=== PATIENT | female | born 1945 | race Hispanic/Latino ===

== ENCOUNTER 2019-05-04 11:07 | Inpatient (IN) | payer MEDICARE ==
[2019-05-04] MEDS ORDERED: MAGNESIUM SULFATE 2GM/50ML 2 GM/50 ML BAG IV ONE (11:21)
[2019-05-04] MEDS ORDERED: SOLU-Medrol IV ONE ×2 (11:21)
[2019-05-04] MEDS ORDERED: PROVENTIL IH ONE ×3 (11:21→15:25)
[2019-05-04] MEDS ORDERED: NACL 0.9% 500 ML 500 ML IV ONE (11:21)
[2019-05-04] MEDS ORDERED: ATROVENT IH ONE ×2 (11:21→14:27)
--- NOTE | 2019-05-04 11:32 | Emergency Department Report ---
ED Shortness of Breath HPI - General Chief Complaint: Dyspnea/Respdistress Stated Complaint: COPD Time Seen by Provider: 05/04/19 11:17 Source: patient, RN notes reviewed Mode of arrival: Ambulatory Limitations: Physical Limitation - History of Present Illness Initial Comments: Primary care Dr.: Dr. Newman Past medical history: COPD, reportedly not on home oxygen, anxiety, high cholesterol, does not have a private endodontist. This is a pleasant 74-year-old female. The patient is not known to this provider previously. The patient presents to the ER with a complaint of painless cough, wheezing, shortness of breath. Symptoms present since last week. They're constant, they do not radiate anywhere, there is no relief with medications at home, the patient denies DVT, pulmonary embolism risk factors. The patient indicates no DVT or PE risk factors. The patient currently denies headache, neck pain, chest pain, she has abdominal cramping from coughing, she denies nausea or vomiting, she denies urinary symptoms, she denies leg pain, leg swelling, skin rashes, skin lesions. MD Complaint: shortness of breath, cough -: Gradual, days(s) Consistency: constant Improves With: rest Worsens With: exertion Known History Of: COPD - Related Data Home Oxygen Therapy: No Home Medications Medication Instructions Recorded Confirmed Last Taken traMADol [Ultram] 50 mg PO Q4HR PRN 09/04/16 09/04/16 09/04/16 Previous Rx's Medication Instructions Recorded Last Taken Type Cyclobenzaprine [Flexeril] 10 mg PO TID PRN #14 tablet 09/04/16 Unknown Rx HYDROcodone/APAP 5-325 [Bannister 1 - 2 each PO Q6HR PRN #14 tablet 09/04/16 Unknown Rx 5/325] Ibuprofen [Motrin 800 MG tab] 800 mg PO Q8HR PRN #20 tablet 09/04/16 Unknown Rx Allergies Allergy/AdvReac Type Severity Reaction Status Date / Time No Known Allergies Allergy Unverified 09/04/16 10:05 ED Review of Systems ROS: Stated complaint: COPD Other details as noted in HPI Constitutional: malaise. denies: fever Eyes: denies: eye discharge ENT: congestion. denies: epistaxis Respiratory: cough, shortness of breath, SOB with exertion, SOB at rest, wheezing Cardiovascular: denies: chest pain Gastrointestinal: denies: vomiting Genitourinary: denies: dysuria Musculoskeletal: denies: myalgia Skin: denies: lesions Neurological: weakness Psychiatric: anxiety Hematological/Lymphatic: denies: easy bleeding ED Past Medical Hx - Past Medical History Previous Medical History?: Yes Hx Psychiatric Treatment: Yes (anxiety) Hx COPD: Yes Additional medical history: high cholesterol - Surgical History Past Surgical History?: Yes Additional Surgical History: bilateral knee surgery. tubal . Rectovaginal fistula repair - Social History Smoking Status: Current Every Day Smoker (20-30 cigarettes daily) Substance Use Type: None - Medications Home Medications: Home Medications Medication Instructions Recorded Confirmed Last Taken Type Cyclobenzaprine [Flexeril] 10 mg PO TID PRN #14 tablet 09/04/16 Unknown Rx HYDROcodone/APAP 5-325 [Bannister 1 - 2 each PO Q6HR PRN #14 tablet 09/04/16 Unknown Rx 5/325] Ibuprofen [Motrin 800 MG tab] 800 mg PO Q8HR PRN #20 tablet 09/04/16 Unknown Rx traMADol [Ultram] 50 mg PO Q4HR PRN 09/04/16 09/04/16 09/04/16 History ED Physical Exam - General Limitations: No Limitations General appearance: alert, anxious, in distress - Head Head exam: Present: atraumatic, normocephalic - Eye Eye exam: Present: normal appearance, EOMI. Absent: nystagmus - ENT ENT exam: Present: normal exam, normal orophraynx, mucous membranes moist, normal external ear exam - Neck Neck exam: Present: normal inspection, full ROM. Absent: tenderness, meningismus - Respiratory Respiratory exam: Present: respiratory distress, wheezes, rhonchi. Absent: decreased breath sounds - Cardiovascular Cardiovascular Exam: Present: normal rhythm, tachycardia, normal heart sounds. Absent: systolic murmur, diastolic murmur, rubs, gallop - GI/Abdominal GI/Abdominal exam: Present: soft. Absent: distended, tenderness, guarding, rebound, rigid, pulsatile mass - Extremities Exam Extremities exam: Present: normal inspection, full ROM, pedal edema (1+ edema lower extremities.), other (2+ pulses noted in the bilateral upper, lower extremities. Compartments soft. No long bony tenderness. The pelvis is stable.). Absent: calf tenderness - Back Exam Back exam: Present: normal inspection, full ROM. Absent: tenderness, CVA tenderness (L), paraspinal tenderness, vertebral tenderness - Neurological Exam Neurological exam: Present: alert, other (Extraocular movements intact. Tongue midline. No facial droop. Facial sensation intact to light touch in the V1, V2, V3 distribution bilaterally. 5 and 5 strength in 4 extremities.. Sensation is intact to light touch in 4 extremities.). Absent: motor sensory deficit - Psychiatric Psychiatric exam: Present: anxious - Skin Skin exam: Present: warm. Absent: rash ED Course Vital Signs 05/04/19 05/04/19 05/04/19 11:10 12:28 12:45 Temperature 97.8 F 97.9 F Pulse Rate 120 H 104 H 110 H Pulse Rate [ Anterior Bilateral Throughout] Respiratory 26 H 12 Rate Respiratory Rate [Anterior Bilateral Throughout] Blood Pressure 135/80 Blood Pressure 138/90 [Right] O2 Sat by Pulse 91 100 Oximetry 05/04/19 05/04/19 13:23 14:05 Temperature Pulse Rate 111 H Pulse Rate [ 108 H Anterior Bilateral Throughout] Respiratory 22 Rate Respiratory 19 Rate [Anterior Bilateral Throughout] Blood Pressure Blood Pressure 121/78 [Right] O2 Sat by Pulse 99 Oximetry - Reevaluation(s) Reevaluation #1: 05/04/19 11:30 Differential diagnosis, including but not limited to: COPD exacerbation, pneumonia, pneumothorax, dehydration, anxiety Assessment and plan: 74-year-old female with probable COPD exacerbation. She is afebrile, saturating at 92% on room air, tachycardia, tachypnea, likely secondary to underlying physiology of COPD, possible anxiety. We will treat her symptoms with albuterol, Atrovent, steroids, fluids, obtain basic lab studies, x-ray of the chest, EKG and reassess after her initial resuscitation Reevaluation #2: 05/04/19 12:45 Resting heart rate 105 bpm. Patient feels improved. Still wheezing, but work of breathing improved. Wheezing is clinically improved. Reevaluation #3: 05/04/19 14:28 Patient still having wheezing. during trial of ambulation, patient desaturated to mid 80s, became more tachycardic and tachypneic. Patient meets criteria for hospitalization. She is amenable to hospitalization. Hospital physician, Dr. Yusuf Byrnes accepts the patient to the medical service for COPD exacerbation. Troponin is sent prior to my evaluation, do not suspect acute coronary syndrome based off of the history and physical. ED Medical Decision Making - Lab Data Result diagrams: 05/04/19 12:04 05/04/19 12:04 Vital Signs 05/04/19 11:10 Temperature 97.8 F Pulse Rate 120 H Respiratory 26 H Rate Blood Pressure 138/90 [Right] O2 Sat by Pulse 91 Oximetry Vital Signs (72 hours) 05/04/19 05/04/19 05/04/19 11:10 12:28 12:45 Temperature 97.8 F 97.9 F Pulse Rate 120 H 104 H 110 H Respiratory 26 H 12 Rate Blood Pressure 135/80 Blood Pressure 138/90 [Right] O2 Sat by Pulse 91 100 Oximetry 05/04/19 13:23 Temperature Pulse Rate 111 H Respiratory 22 Rate Blood Pressure Blood Pressure 121/78 [Right] O2 Sat by Pulse 99 Oximetry Lab Results 05/04/19 05/04/19 05/04/19 Range/Units 12:04 12:04 12:04 WBC 7.9 (4.5-11.0) K/mm3 RBC 4.03 (3.65-5.03) M/mm3 Hgb 11.8 (10.1-14.3) gm/dl Hct 35.8 (30.3-42.9) % MCV 89 (79-97) fl MCH 29 (28-32) pg MCHC 33 (30-34) % RDW 14.7 (13.2-15.2) % Plt Count 271 (140-440) K/mm3 Eos % (Auto) Bowling Floor Manager PT 13.2 (12.2-14.9) Sec. INR 1.03 (0.87-1.13) APTT 20.0 L (24.2-36.6) Sec. Sodium 140 (137-145) mmol/L Potassium 3.9 (3.6-5.0) mmol/L Chloride 104.7 (98-107) mmol/L Carbon Dioxide 25 (22-30) mmol/L Anion Gap 14 mmol/L BUN 12 (7-17) mg/dL Creatinine 0.7 (0.7-1.2) mg/dL Estimated GFR > 60 ml/min BUN/Creatinine Ratio 17 % Glucose 102 H (65-100) mg/dL Calcium 8.9 (8.4-10.2) mg/dL Magnesium 2.60 H (1.7-2.3) mg/dL Total Bilirubin 0.20 (0.1-1.2) mg/dL AST 19 (5-40) units/L ALT 10 (7-56) units/L Alkaline Phosphatase 116 (35-129) units/L Total Creatine Kinase 303 H (30-135) units/L Troponin T < 0.010 (0.00-0.029) ng/mL Total Protein 6.8 (6.3-8.2) g/dL Albumin 3.9 (3.9-5) g/dL Albumin/Globulin Ratio 1.3 % - EKG Data -: EKG Interpreted by [place] EKG shows normal: sinus rhythm Rate: normal - EKG Data When compared to previous EKG there are: previous EKG unavailable 05/04/19 11:33 This is a sinus tachycardia, normal axis, QTC prolonged, motion artifact, [place] interval within normal limits, this EKG is not consistent ST elevation myocard ial infarction, this is an abnormal EKG, there is no prior for comparison. - Radiology Data Radiology results: report reviewed, image reviewed X-ray of the chest is negative for acute disease. Critical care attestation.: If time is entered above; I have spent that time in minutes in the direct care of this critically ill patient, excluding procedure time. ED Disposition Clinical Impression: COPD with exacerbation Disposition: OP ADMIT IP TO THIS HOSP Is pt being admited?: Yes Condition: Fair Instructions: Chronic Obstructive Pulmonary Disease (ED) Referrals: LUCIANA CURTIS MD [Primary Care Provider] - 3-5 Days
--- NOTE | 2019-05-04 12:09 | XRay Report ---
CHEST 1 VIEW 05/04/2019 11:28 AM INDICATION / CLINICAL INFORMATION: Dyspnea. COMPARISON: None available. FINDINGS: SUPPORT DEVICES: None. HEART / MEDIASTINUM: Normal heart size. Atherosclerosis in the thoracic aorta. LUNGS / PLEURA: Scattered calcified granulomata present. No focal consolidation or significant pleura l effusion. No pneumothorax. ADDITIONAL FINDINGS: No significant additional findings. IMPRESSION: 1. No acute findings. Signer Name: Jose Flores MD Signed: 05/04/2019 12:05 PM Workstation Name: [id number]
[2019-05-04 12:37] LABS: Hematocrit 35.8 % (30.3-42.9); Hemoglobin 11.8 gm/dl (10.1-14.3); Mean Corpuscular HGB Conc 33 % (30-34); Mean Corpuscular Volume 89 fl (79-97); Platelet Count 271 K/mm3 (140-440); Red Blood Count 4.03 M/mm3 (3.65-5.03); Red Cell Distribution Width 14.7 % (13.2-15.2)
[2019-05-04 12:42] LABS: Alanine Aminotransferase 10 units/L (7-56); Albumin 3.9 g/dL (3.9-5); BUN/Creatinine Ratio 17; Blood Urea Nitrogen 12 mg/dL (7-17); Calcium 8.9 mg/dL (8.4-10.2); Hemolysis Index 4
[2019-05-04 12:44] LABS: INR 1.03 (0.87-1.13)
[2019-05-04 13:56] LABS: Basophils % (Manual) 0 % (0.0-1.8); Platelet Estimate Consistent w Auto; RBC Morphology Normal; Total Cells Counted 100
[2019-05-04] MEDS ORDERED: VIBRAMYCIN PO ONE (14:27)
[2019-05-04] MEDS ORDERED: VIBRAMYCIN ONE (15:39)
[2019-05-04] MEDS ORDERED: PROAIR IH PRN (20:03)
--- NOTE | 2019-05-04 20:03 | History and Physical Report ---
History of Present Illness Date of examination: 05/04/19 Date of admission: 05/04/19 14:46 Chief complaint: Cough and SOB for one week History of present illness: 74-year-old female with history of severe COPD and Excessive nicotine dependence presents to the ER with complaint of cough, wheezing and shortness of breath for one week.Cough productive of mucoid sputum.No fever or chills.No recent travel.Continues to smoke excessively. Past Medical History Previous Medical History?: Yes Psychiatric Treatment: Yes (anxiety) COPD: Yes Additional medical history: high cholesterol Surgical History Past Surgical History?: Yes Additional Surgical History: bilateral knee surgery. tubal . Rectovaginal fistula repair Social History Smoking Status: Current Every Day Smoker (20-30 cigarettes daily) Substance Use Type: None Family History Htn Review of Systems ROS: Stated complaint: COPD Other details as noted in HPI Constitutional: malaise. denies: fever Eyes: denies: eye discharge ENT: congestion. denies: epistaxis Respiratory: cough, shortness of breath, SOB with exertion, SOB at rest, wheezing Cardiovascular: denies: chest pain Gastrointestinal: denies: vomiting Genitourinary: denies: dysuria Musculoskeletal: denies: myalgia Skin: denies: lesions Neurological: weakness Psychiatric: anxiety Hematological/Lymphatic: denies: easy bleeding Medications and Allergies Allergies Allergy/AdvReac Type Severity Reaction Status Date / Time No Known Allergies Allergy Unverified 09/04/16 10:05 Home Medications Medication Instructions Recorded Confirmed Last Taken Type traMADol [Ultram] 50 mg PO BID PRN 09/04/16 05/04/19 05/04/19 History Albuterol Sulfate [Proventil Hfa] 2 puff IH Q4-6H PRN 05/04/19 05/04/19 05/04/19 History LORazepam [Ativan] 1 mg PO DAILY 05/04/19 05/04/19 05/04/19 History Simvastatin 40 mg PO HS 05/04/19 05/04/19 Unknown History Venlafaxine [Effexor] 75 mg PO BID 05/04/19 05/04/19 05/04/19 History Exam - Constitutional Vitals: Temp Pulse Resp BP Pulse Ox 98.5 F 118 H 20 103/62 95 05/04/19 19:27 05/04/19 19:27 05/04/19 19:27 05/04/19 19:27 05/04/19 19:27 General appearance: Present: mild distress, well-nourished - EENT Eyes: Present: PERRL ENT: hearing intact, clear oral mucosa - Neck Neck: Present: supple, normal ROM - Respiratory Respiratory effort: normal Respiratory: bilateral: diminished, rhonchi, wheezing - Cardiovascular Heart rate: 78 Rhythm: regular Heart Sounds: Present: S1 & S2. Absent: rub, click - Extremities Extremities: no ischemia, pulses intact, pulses symmetrical, No edema Peripheral Pulses: within normal limits - Abdominal General gastrointestinal: Present: soft, non-tender, non-distended, normal bowel sounds Female genitourinary: Present: normal - Rectal Rectal Exam: deferred - Integumentary Integumentary: Present: clear, warm, dry - Musculoskeletal Musculoskeletal: gait normal, strength equal bilaterally - Psychiatric Psychiatric: appropriate mood/affect, intact judgment & insight - Neurologic Neurologic: CNII-XII intact, moves all extremities - Allied Health Allied health notes reviewed: nursing, case management Results - Labs CBC & Chem 7: 05/05/19 05:19 05/05/19 05:19 Labs: Laboratory Last Values WBC 7.9 K/mm3 (4.5-11.0) 05/04/19 12:04 RBC 4.03 M/mm3 (3.65-5.03) 05/04/19 12:04 Hgb 11.8 gm/dl (10.1-14.3) 05/04/19 12:04 Hct 35.8 % (30.3-42.9) 05/04/19 12:04 MCV 89 fl (79-97) 05/04/19 12:04 MCH 29 pg (28-32) 05/04/19 12:04 MCHC 33 % (30-34) 05/04/19 12:04 RDW 14.7 % (13.2-15.2) 05/04/19 12:04 Plt Count 271 K/mm3 (140-440) 05/04/19 12:04 Eos % (Auto) Popcorn Candy Maker 05/04/19 12:04 Add Manual Diff Complete 05/04/19 12:04 Total Counted 100 05/04/19 12:04 Seg Neuts % (Manual) 62.0 % (40.0-70.0) 05/04/19 12:04 0 % 05/04/19 12:04 17.0 % (13.4-35.0) 05/04/19 12:04 Reactive Lymphs % (Man) 0 % 05/04/19 12:04 5.0 % (0.0-7.3) 05/04/19 12:04 16.0 % (0.0-4.3) H 05/04/19 12:04 0 % (0.0-1.8) 05/04/19 12:04 0 % 05/04/19 12:04 0 % 05/04/19 12:04 0 % 05/04/19 12:04 0 % 05/04/19 12:04 Nucleated RBC % Not Reportable 05/04/19 12:04 Seg Neutrophils # Man 4.9 K/mm3 (1.8-7.7) 05/04/19 12:04 Band Neutrophils # 0.0 K/mm3 05/04/19 12:04 1.3 K/mm3 (1.2-5.4) 05/04/19 12:04 Abs React Lymphs (Man) 0.0 K/mm3 05/04/19 12:04 0.4 K/mm3 (0.0-0.8) 05/04/19 12:04 1.3 K/mm3 (0.0-0.4) H 05/04/19 12:04 0.0 K/mm3 (0.0-0.1) 05/04/19 12:04 0.0 K/mm3 05/04/19 12:04 0.0 K/mm3 05/04/19 12:04 0.0 K/mm3 05/04/19 12:04 Blast Cells # 0.0 K/mm3 05/04/19 12:04 WBC Morphology Not Reportable 05/04/19 12:04 Hypersegmented Neuts Not Reportable 05/04/19 12:04 Hyposegmented Neuts Not Reportable 05/04/19 12:04 Hypogranular Neuts Not Reportable 05/04/19 12:04 Not Reportable 05/04/19 12:04 Not Reportable 05/04/19 12:04 Not Reportable 05/04/19 12:04 Not Reportable 05/04/19 12:04 Not Reportable 05/04/19 12:04 Not Reportable 05/04/19 12:04 Consistent w auto 05/04/19 12:04 Not Reportable 05/04/19 12:04 Plt Clumps, EDTA Not Reportable 05/04/19 12:04 Not Reportable 05/04/19 12:04 Not Reportable 05/04/19 12:04 Not Reportable 05/04/19 12:04 Plt Morphology Comment Not Reportable 05/04/19 12:04 RBC Morphology Normal 05/04/19 12:04 Dimorphic RBCs Not Reportable 05/04/19 12:04 Not Reportable 05/04/19 12:04 Not Reportable 05/04/19 12:04 Not Reportable 05/04/19 12:04 Not Reportable 05/04/19 12:04 Not Reportable 05/04/19 12:04 Not Reportable 05/04/19 12:04 Not Reportable 05/04/19 12:04 Not Reportable 05/04/19 12:04 Not Reportable 05/04/19 12:04 Not Reportable 05/04/19 12:04 Not Reportable 05/04/19 12:04 Not Reportable 05/04/19 12:04 Not Reportable 05/04/19 12:04 Not Reportable 05/04/19 12:04 Not Reportable 05/04/19 12:04 Not Reportable 05/04/19 12:04 Not Reportable 05/04/19 12:04 Not Reportable 05/04/19 12:04 Not Reportable 05/04/19 12:04 Acanthocytes (Spur) Not Reportable 05/04/19 12:04 Rouleaux Not Reportable 05/04/19 12:04 Not Reportable 05/04/19 12:04 Not Reportable 05/04/19 12:04 Not Reportable 05/04/19 12:04 Not Reportable 05/04/19 12:04 Hem Pathologist Commnt No 05/04/19 12:04 PT 13.2 Sec. (12.2-14.9) 05/04/19 12:04 INR 1.03 (0.87-1.13) 05/04/19 12:04 APTT 20.0 Sec. (24.2-36.6) L 05/04/19 12:04 Sodium 140 mmol/L (137-145) 05/04/19 12:04 Potassium 3.9 mmol/L (3.6-5.0) 05/04/19 12:04 Chloride 104.7 mmol/L (98-107) 05/04/19 12:04 Carbon Dioxide 25 mmol/L (22-30) 05/04/19 12:04 14 mmol/L 05/04/19 12:04 BUN 12 mg/dL (7-17) 05/04/19 12:04 0.7 mg/dL (0.7-1.2) 05/04/19 12:04 Estimated GFR > 60 ml/min 05/04/19 12:04 17 % 05/04/19 12:04 Glucose 102 mg/dL (65-100) H 05/04/19 12:04 Calcium 8.9 mg/dL (8.4-10.2) 05/04/19 12:04 Magnesium 2.60 mg/dL (1.7-2.3) H 05/04/19 12:04 0.20 mg/dL (0.1-1.2) 05/04/19 12:04 AST 19 units/L (5-40) 05/04/19 12:04 ALT 10 units/L (7-56) 05/04/19 12:04 116 units/L (35-129) 05/04/19 12:04 303 units/L (30-135) H 05/04/19 12:04 < 0.010 ng/mL (0.00-0.029) 05/04/19 12:04 6.8 g/dL (6.3-8.2) 05/04/19 12:04 3.9 g/dL (3.9-5) 05/04/19 12:04 1.3 % 05/04/19 12:04 Short CBC 05/04/19 05/05/19 Range/Units 12:04 05: WBC 7.9 10.3 (4.5-11.0) K/mm3 Hgb 11.8 11.7 (10.1-14.3) gm/dl Hct 35.8 34.5 (30.3-42.9) % Plt Count 271 (140-440) K/mm3 BMP 05/04/19 05/05/19 12:04 05:19 Sodium 140 136 L Potassium 3.9 4.7 D Chloride 104.7 105.5 Carbon Dioxide 25 20 L BUN 12 12 Creatinine 0.7 0.6 L Glucose 102 H 147 H Calcium 8.9 8.5 Cardiac Enzymes 05/04/19 Range/Units 12:04 Total Creatine Kinase 303 H (30-135) units/L Troponin T < 0.010 (0.00-0.029) ng/mL Liver Function 05/04/19 05/05/19 Range/Units 12:04 05:19 Total Bilirubin 0.20 < 0.20 (0.1-1.2) mg/dL AST 19 22 (5-40) units/L ALT 10 9 (7-56) units/L Alkaline Phosphatase 116 111 (35-129) units/L Albumin 3.9 3.6 L (3.9-5) g/dL - Imaging and Cardiology EKG: report reviewed Chest x-ray: report reviewed Imaging and Cardiology: EKG Data EKG Interpreted by Me EKG shows normal: sinus rhythm Rate: normal EKG Data When compared to previous EKG there are: previous EKG unavailab This is a sinus tachycardia, normal axis, QTC prolonged, motion artifact, [place] interval within normal limits, this EKG is not consistent ST elevation myocardial infarction, this is an abnormal EKG, there is no prior for comparison. Radiology Data Radiology results: report reviewed, image reviewed X-ray of the chest is negative for acute disease. C Assessment and Plan Advance Directives: Yes (Full code) VTE prophylaxis?: Chemical Plan of care discussed with patient/family: Yes - Patient Problems (1) Acute respiratory failure with hypoxia and hypercapnia Current Visit: Yes Status: Acute (2) COPD with exacerbation Current Visit: Yes Status: Acute Plan to address problem: Patient initiated on Duonebs IV Solumedrol and IV Levaquin Bipap if necessary Intubation if necessary Pulm consult (3) HLD (hyperlipidemia) Current Visit: Yes Status: Chronic Qualifiers: Hyperlipidemia type: mixed hyperlipidemia Qualified Code(s): E78.2 - Mixed hyperlipidemia Plan to address problem: Cont statins (4) LANDEN (generalized anxiety disorder) Current Visit: Yes Status: Chronic Plan to address problem: Cont anxiolytics (5) Nicotine dependence Current Visit: Yes Status: Chronic Qualifiers: Nicotine product type: cigarettes Plan to address problem: Counselled about smoking cessation Nicoderm patch initiated (6) Depression Current Visit: Yes Status: Chronic Qualifiers: Depression Type: unspecified Qualified Code(s): F32.9 - Major depressive disorder, single episode, unspecified Plan to address problem: On Effexor (7) DVT prophylaxis Current Visit: Yes Status: Acute Plan to address problem: On Lovenox and GI prophylaxis
[2019-05-04] MEDS ORDERED: ZOFRAN IV PRN (20:05)
[2019-05-04] MEDS ORDERED: SODIUM CHLORIDE FLUSH SYRINGE 10 ML IV PRN (20:05)
[2019-05-04] MEDS ORDERED: TYLENOL PO PRN (20:05)
[2019-05-04] MEDS ORDERED: IBUPROFEN PO PRN (20:06)
[2019-05-04] MEDS ORDERED: PROVENTIL IH PRN ×3 (20:08→20:15)
--- NOTE | 2019-05-04 20:50 | Consultation ---
History of Present Illness Consult date: 05/04/19 Reason for consult: dyspnea, cough, COPD History of present illness: PULMONARY AND CRITICAL CARE CONSULTATION. DR. VELAZQUEZ THANK YOU FOR ASKING US TO PARTICIPATE IN THE CARE OF THIS PATIENT. This is a pleasant 74-year-old female presents to the ER with a complaint of cough, wheezing, shortness of breath. Symptoms present since last week. They're constant, they do not radiate anywhere, there is no relief with medications at home, the patient denies DVT, pulmonary embolism risk factors. The patient currently denies headache, neck pain, chest pain, she has abdominal cramping from coughing, she denies nausea or vomiting, she denies urinary symptoms, she denies leg pain, leg swelling, skin rashes, skin lesions. Patient has history of COPD. Patient is heavy smoker. 2 packs a day x40 years. Still smoking. Patient has history of alcohol but stopped drinking for many years. Denies drug abuse. Worked with the [employer] system. Not children one. Denies allergies to the medication. Patient presently has wheezing and on 2 litres O2.O2 saturation 95%. Chest xray reported, no acute findings. Past History Past Medical History: COPD Social history: smoking Medications and Allergies Allergies Allergy/AdvReac Type Severity Reaction Status Date / Time No Known Allergies Allergy Unverified 09/04/16 10:05 Home Medications Medication Instructions Recorded Confirmed Last Taken Type traMADol [Ultram] 50 mg PO BID PRN 09/04/16 05/04/19 05/04/19 History Albuterol Sulfate [Proventil Hfa] 2 puff IH Q4-6H PRN 05/04/19 05/04/19 05/04/19 History LORazepam [Ativan] 1 mg PO DAILY 05/04/19 05/04/19 05/04/19 History Simvastatin 40 mg PO HS 05/04/19 05/04/19 Unknown History Venlafaxine [Effexor] 75 mg PO BID 05/04/19 05/04/19 05/04/19 History Active Meds: Active Medications Acetaminophen (Tylenol) 650 mg PO Q4H PRN PRN Reason: Pain MILD(1-3)/Fever >100.5/PABLO Albuterol (Proventil) 2.5 mg IH Q4HRT PRN PRN Reason: Shortness Of Breath Albuterol/Ipratropium (Duoneb *Not For Prn Use*) 1 ampul IH QIDRT SH[facility]KA Famotidine (Pepcid) 20 mg IV BID SHAMEKA Hydromorphone HCl (Dilaudid) 0.5 mg IV Q3H PRN PRN Reason: Pain , Severe (7-10) Sodium Chloride (Nacl 0.9% 1000 Ml) 1,000 mls @ 42 mls/hr IV DIRECT SHAMEKA Stop: 05/05/19 11:00 Levofloxacin/Dextrose (Levaquin 750mg/150ml) 750 mg in 150 mls @ 100 mls/hr IV Q24H SHAMEKA; Protocol Ibuprofen (Ibuprofen) 600 mg PO Q6H PRN PRN Reason: Pain, Mild (1-3) Lorazepam (Ativan) 1 mg PO QHS [facility] Methylprednisolone Sodium Succinate (Solu-Medrol) 60 mg IV Q8H SHAMEKA Ondansetron HCl (Zofran) 4 mg IV Q8H PRN PRN Reason: Nausea And Vomiting Pravastatin Sodium (Pravachol) 80 mg PO QHS [facility] Sodium Chloride (Sodium Chloride Flush Syringe 10 Ml) 10 ml IV BID [facility] Sodium Chloride (Sodium Chloride Flush Syringe 10 Ml) 10 ml IV PRN PRN PRN Reason: LINE FLUSH Tramadol HCl (Ultram) 50 mg PO BID PRN PRN Reason: Pain Venlafaxine HCl (Effexor) 75 mg PO BID [facility] Review of Systems All systems: negative Physical Examination Vital signs: Vital Signs Temp Pulse Resp BP Pulse Ox 97.8 F 120 H 26 H 138/90 91 05/04/19 11:10 05/04/19 11:10 05/04/19 11:10 05/04/19 11:10 05/04/19 11:10 General appearance: alert, appears uncomfortable, other (Mild respiratory distress.) Eyes: non-icteric ENT: oropharynx moist Neck: supple, no JVD Ascultation: Bilateral: wheezes, rhonchi Cardiovascular: regular rate and rhythm Gastrointestinal: normoactive bowel sounds, soft, non-tender Integumentary: normal Extremities: no cyanosis, no edema Musculoskeletal: no deformities Gait: normal gait normal mental status, non-focal exam, pupils equal and round, CN II-XII normal mood appropriate Results - Laboratory Findings CBC and BMP: 05/04/19 12:04 05/04/19 12:04 PT/INR, D-dimer PT 13.2 Sec. (12.2-14.9) 05/04/19 12:04 INR 1.03 (0.87-1.13) 05/04/19 12:04 Abnormal lab findings: Abnormal Labs 05/04/19 05/04/19 05/04/19 12:04 12:04 12:04 Eosinophils % (Manual) 16.0 H Eosinophils # (Manual) 1.3 H APTT 20.0 L Glucose 102 H Magnesium 2.60 H Total Creatine Kinase 303 H - Diagnostic Findings Chest x-ray: report reviewed (Reported no acute findings.), image reviewed Assessment and Plan his is a pleasant 74-year-old female presents to the ER with a complaint of cough, wheezing, shortness of breath. Symptoms present since last week. They' re constant, they do not radiate anywhere, there is no relief with medications at home, the patient denies DVT, pulmonary embolism risk factors. The patient currently denies headache, neck pain, chest pain, she has abdominal cramping from coughing, she denies nausea or vomiting, she denies urinary symptoms, she denies leg pain, leg swelling, skin rashes, skin lesions. Patient has history of COPD. Patient is heavy smoker. 2 packs a day x40 years. Still smoking. Patient has history of alcohol but stopped drinking for many years. Denies drug abuse. Worked with the [employer] system. Not children one. Denies allergies to the medication. Patient presently has wheezing and on 2 litres O2.O2 saturation 95%. Chest xray reported, no acute findings. - Patient Problems (1) COPD with exacerbation Current Visit: Yes Status: Acute Plan to address problem: O2 2 litres via nasal canula. Albuterol/atrovent aerosol treatments q 6 hours. Continue I/V solumedrol. Continue Levaquin. Continue famotidine. Recommend DVT prophylaxis S/C Lovenox. SCDs. Counselled to stop smoking. ABGs on room air. PFTs as out patient. (2) Acute bronchitis Current Visit: Yes Status: Acute Plan to address problem: Continue Levaquin.
[2019-05-04] MEDS ORDERED: NACL 0.9% 1000 ML 1,000 ML IV SCH (21:00)
[2019-05-04] MEDS: LEVAQUIN 750MG/150ML 750 MG/150 ML BAG IV SCH (21:14)
[2019-05-04] MEDS: ULTRAM PO PRN (21:15)
[2019-05-04] MEDS: ATIVAN PO SCH (21:15)
[2019-05-04] MEDS: SOLU-Medrol IV SCH (21:16)
[2019-05-04] MEDS: SODIUM CHLORIDE FLUSH SYRINGE 10 ML IV SCH (21:17)
[2019-05-04] MEDS: EFFEXOR PO SCH (21:19)
[2019-05-04] MEDS ORDERED: TORADOL IV PRN (21:20)
[2019-05-04] MEDS: PEPCID IV SCH (21:24)
[2019-05-04] MEDS ORDERED: NON-FORMULARY (Simvastatin [Simvastatin] 40 MG) PO SCH (22:00)
[2019-05-04] MEDS: PRAVACHOL PO SCH (23:03)
[2019-05-04] MEDS: DILAUDID IV PRN (23:04)
[2019-05-05] MEDS: DILAUDID IV PRN (04:24)
[2019-05-05] MEDS: SOLU-Medrol IV SCH ×3 (05:24→22:03)
[2019-05-05 05:28] LABS: Hematocrit 34.5 % (30.3-42.9); Hemoglobin 11.7 gm/dl (10.1-14.3); Mean Corpuscular HGB Conc 34 % (30-34); Mean Corpuscular Volume 87 fl (79-97); Red Blood Count 3.95 M/mm3 (3.65-5.03); Red Cell Distribution Width 14.7 % (13.2-15.2)
[2019-05-05 05:43] LABS: Alanine Aminotransferase 9 units/L (7-56); Albumin 3.6 g/dL (3.9-5); BUN/Creatinine Ratio 20; Blood Urea Nitrogen 12 mg/dL (7-17); Calcium 8.5 mg/dL (8.4-10.2); Hemolysis Index 65
[2019-05-05 06:44] LABS: Basophils % (Manual) 0 % (0.0-1.8); Eosinophils % (Manual) 0 % (0.0-4.3); Total Cells Counted 100
[2019-05-05 06:45] LABS: Platelet Estimate Consistent w Auto; RBC Morphology Normal
[2019-05-05 06:46] LABS: Platelet Count 231 K/mm3 (140-440)
[2019-05-05] MEDS: DUONEB *Not for PRN Use IH SCH ×4 (07:33→19:38)
[2019-05-05] MEDS ORDERED: DUONEB *Not for PRN Use IH SCH (08:00)
[2019-05-05] MEDS: HABITROL TD SCH (08:06)
[2019-05-05] MEDS ORDERED: HYDROMET PO PRN (08:06)
--- NOTE | 2019-05-05 08:07 | Progress Note ---
Assessment and Plan Assessment and plan: 74-year-old female with history of severe COPD and Excessive nicotine dependence presents to the ER with complaint of cough, wheezing and shortness of breath for one week. Cough productive of mucoid sputum.No fever or chills. No recent travel. Continues to smoke excessively. Acute respiratory failure with hypoxia and hypercapnia COPD with exacerbation Tachycardia Hx of OPIOID ABUSE Stop IV dialudid, hycodan HLD (hyperlipidemia) mixed hyperlipidemia LANDEN (generalized anxiety disorder) Chronic Nicotine dependence: Chronic Nicotine product type: cigarettes Depression: Chronic F32.9 - Major depressive disorder, single episode, unspecified DVT prophylaxis Plan Cont anxiolytics On Effexor Patient initiated on Duonebs IV, Solumedrol and IV Levaquin Bipap if necessary Intubation if necessary Pulm consult PFT on discharge Cont statins Counselled about smoking cessation for 15 mins Nicoderm patch initiated n Lovenox and GI prophylaxis CXR: Unremarkable Home o2 test prior to discharge History Interval history: Patient seen and examined her pulse improvement was admitted for COPD exacerbation. Some improvement still with cough, non productive. Still with bilateral wheezing. Hospitalist Physical - Constitutional Vitals: Temp Pulse Resp BP Pulse Ox 98.1 F 123 H 20 115/69 94 05/05/19 01:50 05/05/19 07:47 05/05/19 07:47 05/05/19 01:50 05/05/19 07:32 General appearance: Present: mild distress, well-nourished - EENT Eyes: Present: PERRL, EOM intact ENT: hearing intact - Neck Neck: Present: supple, normal ROM - Respiratory Respiratory effort: normal Respiratory: bilateral: wheezing - Cardiovascular Rhythm: regular Heart Sounds: Present: S1 & S2. Absent: systolic murmur - Extremities Extremities: no ischemia, pulses intact, No edema, normal temperature, Full ROM Peripheral Pulses: within normal limits - Abdominal General gastrointestinal: soft, non-tender, non-distended, normal bowel sounds - Integumentary Integumentary: Present: clear, warm - Psychiatric Psychiatric: appropriate mood/affect, intact judgment & insight - Neurologic Neurologic: CNII-XII intact - Allied Health Allied health notes reviewed: nursing Results - Labs CBC & Chem 7: 05/05/19 05:19 05/05/19 05:19 Labs: Laboratory Last Values WBC 10.3 K/mm3 (4.5-11.0) 05/05/19 05:19 RBC 3.95 M/mm3 (3.65-5.03) 05/05/19 05:19 Hgb 11.7 gm/dl (10.1-14.3) 05/05/19 05:19 Hct 34.5 % (30.3-42.9) 05/05/19 05:19 MCV 87 fl (79-97) 05/05/19 05:19 MCH 30 pg (28-32) 05/05/19 05:19 MCHC 34 % (30-34) 05/05/19 05:19 RDW 14.7 % (13.2-15.2) 05/05/19 05:19 Plt Count 231 K/mm3 (140-440) 05/05/19 05:19 Eos % (Auto) Hel[employer] Coverer 05/04/19 12:04 Add Manual Diff Complete 05/05/19 05:19 Total Counted 100 05/05/19 05:19 Seg Neutrophils % Hel[employer] Coverer 05/05/19 05:19 Seg Neuts % (Manual) 96.0 % (40.0-70.0) H 05/05/19 05:19 0 % 05/05/19 05:19 3.0 % (13.4-35.0) L 05/05/19 05:19 Reactive Lymphs % (Man) 0 % 05/05/19 05:19 1.0 % (0.0-7.3) 05/05/19 05:19 0 % (0.0-4.3) 05/05/19 05:19 0 % (0.0-1.8) 05/05/19 05:19 0 % 05/05/19 05:19 0 % 05/05/19 05:19 0 % 05/05/19 05:19 0 % 05/05/19 05:19 Nucleated RBC % Not Reportable 05/05/19 05:19 Seg Neutrophils # Man 9.9 K/mm3 (1.8-7.7) H 05/05/19 05:19 Band Neutrophils # 0.0 K/mm3 05/05/19 05:19 0.3 K/mm3 (1.2-5.4) L 05/05/19 05:19 Abs React Lymphs (Man) 0.0 K/mm3 05/05/19 05:19 0.1 K/mm3 (0.0-0.8) 05/05/19 05:19 0.0 K/mm3 (0.0-0.4) 05/05/19 05:19 0.0 K/mm3 (0.0-0.1) 05/05/19 05:19 0.0 K/mm3 05/05/19 05:19 0.0 K/mm3 05/05/19 05:19 0.0 K/mm3 05/05/19 05:19 Blast Cells # 0.0 K/mm3 05/05/19 05:19 WBC Morphology Not Reportable 05/05/19 05:19 Hypersegmented Neuts Not Reportable 05/05/19 05:19 Hyposegmented Neuts Not Reportable 05/05/19 05:19 Hypogranular Neuts Not Reportable 05/05/19 05:19 Not Reportable 05/05/19 05:19 Not Reportable 05/05/19 05:19 Not Reportable 05/05/19 05:19 Not Reportable 05/05/19 05:19 Not Reportable 05/05/19 05:19 Not Reportable 05/05/19 05:19 Consistent w auto 05/05/19 05:19 Not Reportable 05/05/19 05:19 Plt Clumps, EDTA Not Reportable 05/05/19 05:19 Not Reportable 05/05/19 05:19 Not Reportable 05/05/19 05:19 Not Reportable 05/05/19 05:19 Plt Morphology Comment Not Reportable 05/05/19 05:19 RBC Morphology Normal 05/05/19 05:19 Dimorphic RBCs Not Reportable 05/05/19 05:19 Not Reportable 05/05/19 05:19 Not Reportable 05/05/19 05:19 Not Reportable 05/05/19 05:19 Not Reportable 05/05/19 05:19 Not Reportable 05/05/19 05:19 Not Reportable 05/05/19 05:19 Not Reportable 05/05/19 05:19 Not Reportable 05/05/19 05:19 Not Reportable 05/05/19 05:19 Not Reportable 05/05/19 05:19 Not Reportable 05/05/19 05:19 Not Reportable 05/05/19 05:19 Not Reportable 05/05/19 05:19 Not Reportable 05/05/19 05:19 Not Reportable 05/05/19 05:19 Not Reportable 05/05/19 05:19 Not Reportable 05/05/19 05:19 Not Reportable 05/05/19 05:19 Not Reportable 05/05/19 05:19 Acanthocytes (Spur) Not Reportable 05/05/19 05:19 Rouleaux Not Reportable 05/05/19 05:19 Not Reportable 05/05/19 05:19 Not Reportable 05/05/19 05:19 Not Reportable 05/05/19 05:19 Not Reportable 05/05/19 05:19 Hem Pathologist Commnt No 05/05/19 05:19 PT 13.2 Sec. (12.2-14.9) 05/04/19 12:04 INR 1.03 (0.87-1.13) 05/04/19 12:04 APTT 20.0 Sec. (24.2-36.6) L 05/04/19 12:04 Sodium 136 mmol/L (137-145) L 05/05/19 05:19 Potassium 4.7 mmol/L (3.6-5.0) D 05/05/19 05:19 Chloride 105.5 mmol/L (98-107) 05/05/19 05:19 Carbon Dioxide 20 mmol/L (22-30) L 05/05/19 05:19 15 mmol/L 05/05/19 05:19 BUN 12 mg/dL (7-17) 05/05/19 05:19 0.6 mg/dL (0.7-1.2) L 05/05/19 05:19 Estimated GFR > 60 ml/min 05/05/19 05:19 20 % 05/05/19 05:19 Glucose 147 mg/dL (65-100) H 05/05/19 05:19 5.9 % (4-6) 05/04/19 12:04 Calcium 8.5 mg/dL (8.4-10.2) 05/05/19 05:19 Magnesium 2.60 mg/dL (1.7-2.3) H 05/04/19 12:04 < 0.20 mg/dL (0.1-1.2) 05/05/19 05:19 AST 22 units/L (5-40) 05/05/19 05:19 ALT 9 units/L (7-56) 05/05/19 05:19 111 units/L (35-129) 05/05/19 05:19 303 units/L (30-135) H 05/04/19 12:04 < 0.010 ng/mL (0.00-0.029) 05/04/19 12:04 6.6 g/dL (6.3-8.2) 05/05/19 05:19 3.6 g/dL (3.9-5) L 05/05/19 05:19 1.2 % 05/05/19 05:19 Active Medications - Current Medications Current Medications: Generic Name Dose Route Start Last Admin Trade Name Freq PRN Reason Stop Dose Admin Acetaminophen 650 mg 05/04/19 20:05 Tylenol PO Q4H PRN Pain MILD(1-3)/Fever >100.5/PABLO Albuterol 2.5 mg 05/04/19 20:15 05/04/19 23:31 Proventil IH 2.5 mg Q4HRT PRN Administration Shortness Of Breath Albuterol/Ipratropium 1 ampul 05/05/19 08:00 05/05/19 07:33 Duoneb *Not For Prn Use* IH 1 ampul QIDRT SHAMEKA Administration Alprazolam 0.25 mg 05/05/19 10:00 Xanax PO Q12HR SHAMEKA Famotidine 20 mg 05/04/19 22:00 05/04/19 21:24 Pepcid IV 20 mg BID SHAMEKA Administration Hydromorphone HCl 0.5 mg 05/04/19 20:06 05/05/19 04:24 Dilaudid IV 0.5 mg Q3H PRN Administration Pain , Severe (7-10) Sodium Chloride 1,000 mls @ 42 mls/hr 05/04/19 21:00 05/04/19 21:16 Nacl 0.9% 1000 Ml IV 05/05/19 11:00 42 mls/hr DIRECT SHAMEKA Administration Levofloxacin/Dextrose 750 mg in 150 mls @ 100 mls/hr 05/04/19 21:00 05/04/19 21:14 Levaquin 750mg/150ml IV 100 mls/hr Q24H SHAMEKA Administration Protocol Ibuprofen 600 mg 05/04/19 20:06 Ibuprofen PO Q6H PRN Pain, Mild (1-3) Lorazepam 1 mg 05/04/19 22:00 05/04/19 21:15 Ativan PO 1 mg QHS SHAMEKA Administration Methylprednisolone Sodium Succinate 60 mg 05/04/19 22:00 05/05/19 05:24 Solu-Medrol IV 60 mg Q8H SHAMEKA Administration Nicotine 21 mg 05/05/19 06:50 Habitrol TD QDAY [facility] Ondansetron HCl 4 mg 05/04/19 20:05 Zofran IV Q8H PRN Nausea And Vomiting Pravastatin Sodium 80 mg 05/04/19 22:00 05/04/19 23:03 Pravachol PO 80 mg QHS SHAMEKA Administration Sodium Chloride 10 ml 05/04/19 22:00 05/04/19 21:17 Sodium Chloride Flush Syringe 10 Ml IV 10 ml BID SHAMEKA Administration Sodium Chloride 10 ml 05/04/19 20:05 Sodium Chloride Flush Syringe 10 Ml IV PRN PRN LINE FLUSH Tramadol HCl 50 mg 05/04/19 20:03 05/04/19 21:15 Ultram PO 50 mg BID PRN Administration Pain Venlafaxine HCl 75 mg 05/04/19 22:00 05/04/19 21:19 Effexor PO 75 mg BID SHAMEKA Administration
[2019-05-05] MEDS: EFFEXOR PO SCH ×2 (09:07→21:37)
[2019-05-05] MEDS: XANAX PO SCH ×2 (09:07→21:37)
[2019-05-05] MEDS: SODIUM CHLORIDE FLUSH SYRINGE 10 ML IV SCH ×2 (09:08→21:40)
[2019-05-05] MEDS: PEPCID IV SCH ×2 (09:08→21:37)
--- NOTE | 2019-05-05 13:26 | Progress Note ---
Assessment and Plan his is a pleasant 74-year-old female presents to the ER with a complaint of cough, wheezing, shortness of breath. Symptoms present since last week. They're constant, they do not radiate anywhere, there is no relief with medications at home, the patient denies DVT, pulmonary embolism risk factors. The patient currently denies headache, neck pain, chest pain, she has abdominal cramping from coughing, she denies nausea or vomiting, she denies urinary symptoms, she denies leg pain, leg swelling, skin rashes, skin lesions. Patient has history of COPD. Patient is heavy smoker. 2 packs a day x40 years. Still smoking. Patient has history of alcohol but stopped drinking for many years. Denies drug abuse. Worked with the [employer] system. Not children one. Denies allergies to the medication. Patient presently has wheezing and on 2 litres O2.O2 saturation 95%. Chest xray reported, no acute findings. 05/05/19 Patient says breathing better than yesterday. Resting on 2 litres O2. O2 saturation 94%. No acute respiratory distress. Says abdominal pain is some what better. ABG on room air. POC ABG pH 7.399 (7.35-7.45) 05/05/19 09:46 POC ABG pCO2 35.6 (35-45) 05/05/19 09:46 POC ABG pO2 70 (80-105) L 05/05/19 09:46 POC ABG HCO3 22.0 (22-26 mml/L) 05/05/19 09:46 POC ABG Total CO2 23 (23-27mmol/L) 05/05/19 09:46 POC ABG O2 Sat 94 05/05/19 09:46 - Patient Problems (1) COPD with exacerbation Current Visit: Yes Status: Acute Plan to address problem: O2 2 litres via nasal canula. Albuterol/atrovent aerosol treatments q 6 hours. Continue I/V solumedrol. Continue Levaquin. Continue famotidine. Recommend DVT prophylaxis S/C Lovenox. SCDs. Counselled to stop smoking. PFTs as out patient. (2) Acute bronchitis Current Visit: Yes Status: Acute Plan to address problem: Continue Levaquin. Subjective Date of service: 05/05/19 Interval history: Patient says breathing better than yesterday. Resting on 2 litres O2. O2 saturation 94%. No acute respiratory distress. Says abdominal pain is some what better. ABG on room air. POC ABG pH 7.399 (7.35-7.45) 05/05/19 09:46 POC ABG pCO2 35.6 (35-45) 05/05/19 09:46 POC ABG pO2 70 (80-105) L 05/05/19 09:46 POC ABG HCO3 22.0 (22-26 mml/L) 05/05/19 09:46 POC ABG Total CO2 23 (23-27mmol/L) 05/05/19 09:46 POC ABG O2 Sat 94 05/05/19 09:46 Objective Vital Signs - 12hr 05/05/19 05/05/19 05/05/19 01:50 04:24 04:48 Temperature 98.1 F Pulse Rate 124 H 115 H Pulse Rate [ Anterior Bilateral Throughout] Respiratory 20 20 Rate Respiratory Rate [Anterior Bilateral Throughout] Blood Pressure 115/69 O2 Sat by Pulse 93 Oximetry 05/05/19 05/05/19 05/05/19 04:54 07:29 07:32 Temperature 98.8 F Pulse Rate 119 H Pulse Rate [ Anterior Bilateral Throughout] Respiratory 20 20 Rate Respiratory Rate [Anterior Bilateral Throughout] Blood Pressure 129/82 O2 Sat by Pulse 94 94 Oximetry 05/05/19 05/05/19 05/05/19 07:34 07:47 09:39 Temperature Pulse Rate 117 H Pulse Rate [ 122 H 123 H Anterior Bilateral Throughout] Respiratory Rate Respiratory 20 20 Rate [Anterior Bilateral Throughout] Blood Pressure O2 Sat by Pulse Oximetry 05/05/19 05/05/19 11:05 11:15 Temperature Pulse Rate Pulse Rate [ 120 H 122 H Anterior Bilateral Throughout] Respiratory Rate Respiratory 20 20 Rate [Anterior Bilateral Throughout] Blood Pressure O2 Sat by Pulse Oximetry Constitutional: no acute distress, alert Eyes: non-icteric ENT: oropharynx moist Neck: supple, no JVD Ascultation: Bilateral: wheezes, rhonchi Cardiovascular: regular rate and rhythm Gastrointestinal: normoactive bowel sounds, soft, non-tender Integumentary: normal Extremities: no cyanosis, no edema Neurologic: normal mental status, non-focal exam, pupils equal and round, CN II- XII normal Psychiatric: mood appropriate CBC and BMP: 05/05/19 05:19 05/05/19 05:19 ABG, PT/INR, D-dimer: ABG POC ABG pH 7.399 (7.35-7.45) 05/05/19 09:46 POC ABG pCO2 35.6 (35-45) 05/05/19 09:46 POC ABG pO2 70 (80-105) L 05/05/19 09:46 POC ABG HCO3 22.0 (22-26 mml/L) 05/05/19 09:46 POC ABG Total CO2 23 (23-27mmol/L) 05/05/19 09:46 POC ABG O2 Sat 94 05/05/19 09:46 PT/INR, D-dimer PT 13.2 Sec. (12.2-14.9) 05/04/19 12:04 INR 1.03 (0.87-1.13) 05/04/19 12:04 Abnormal lab findings: Abnormal Labs 05/04/19 05/04/19 05/04/19 12:04 12:04 12:04 Seg Neuts % (Manual) Lymphocytes % (Manual) Eosinophils % (Manual) 16.0 H Seg Neutrophils # Man Lymphocytes # (Manual) Eosinophils # (Manual) 1.3 H APTT 20.0 L POC ABG pO2 Sodium Carbon Dioxide Creatinine Glucose 102 H Magnesium 2.60 H Total Creatine Kinase 303 H Albumin 05/05/19 05/05/19 05/05/19 05:19 05:19 09:46 Seg Neuts % (Manual) 96.0 H Lymphocytes % (Manual) 3.0 L Eosinophils % (Manual) Seg Neutrophils # Man 9.9 H Lymphocytes # (Manual) 0.3 L Eosinophils # (Manual) APTT POC ABG pO2 70 L Sodium 136 L Carbon Dioxide 20 L Creatinine 0.6 L Glucose 147 H Magnesium Total Creatine Kinase Albumin 3.6 L
[2019-05-05] MEDS: ULTRAM PO PRN (19:20)
[2019-05-05] MEDS: PRAVACHOL PO SCH (21:37)
[2019-05-05] MEDS: ATIVAN PO SCH (21:37)
[2019-05-05] MEDS: LEVAQUIN 750MG/150ML 750 MG/150 ML BAG IV SCH (21:38)
[2019-05-06] MEDS: SOLU-Medrol IV SCH (05:25)
[2019-05-06] MEDS: DUONEB *Not for PRN Use IH SCH (07:19)
[2019-05-06 07:46] VITALS: BP 106/77
[2019-05-06] MEDS: XANAX PO SCH (09:10)
[2019-05-06] MEDS: HABITROL TD SCH (09:10)
[2019-05-06] MEDS: EFFEXOR PO SCH (09:11)
[2019-05-06] MEDS: PEPCID IV SCH (09:11)
[2019-05-06] MEDS: SODIUM CHLORIDE FLUSH SYRINGE 10 ML IV SCH (09:12)
--- NOTE | 2019-05-06 10:15 | Discharge Summary ---
Providers - Providers Date of Admission: 05/04/19 14:46 Attending physician: SHALINI FIGUEROA MD 05/04/19 20:06 Consult to Physician [CONS] Routine Comment: Consulting Provider: SHELLY FORD Physician Instructions: Reason For Exam: COPD exacerbation Primary care physician: [facility], Hospitalization Reason for admission: COPD exacerbation Condition: Stable Hospital course: 74-year-old female with history of severe COPD and Excessive nicotine dependence presents to the ER with complaint of cough, wheezing and shortness of breath for one week. Cough productive of mucoid sputum. No fever or chills. No recent travel. Continues to smoke excessively. Patient was treated for copd exacerbation with steroids. Extensive conversation was had with the patient communlatively over 40 mins on need to quit tobacco use. she reported understanding and requested patches to help her. she will have oxygen eval prior to discharge Acute respiratory failure with hypoxia and hypercapnia COPD with exacerbation Sinus Tachycardia Hx of OPIOID ABUSE HLD (hyperlipidemia) mixed hyperlipidemia LANDEN (generalized anxiety disorder) Chronic Nicotine dependence: Chronic Depression: Chronic F32.9 - Major depressive disorder, single episode, unspecified Disposition: DC-01 TO HOME OR SELFCARE Time spent for discharge: 35 mins Core Measure Documentation - Palliative Care Palliative Care/ Comfort Measures: Not Applicable - Core Measures Any of the following diagnoses?: none Exam - Constitutional Vitals: Temp Pulse Resp BP Pulse Ox 97.9 F 112 H 20 106/77 97 05/06/19 07:31 05/06/19 09:38 05/06/19 07:31 05/06/19 07:31 05/06/19 07:31 General appearance: Present: no acute distress - EENT Eyes: Present: PERRL, EOM intact ENT: clear oral mucosa, dentition normal - Neck Neck: Present: supple, normal ROM - Respiratory Respiratory effort: normal Respiratory: bilateral: diminished - Cardiovascular Rhythm: regular Heart Sounds: Present: S1 & S2. Absent: systolic murmur - Extremities Extremities: no ischemia, pulses intact, pulses symmetrical, No edema Peripheral Pulses: within normal limits - Abdominal General gastrointestinal: Present: soft, non-tender, non-distended, normal bowel sounds - Integumentary Integumentary: Present: clear, warm - Musculoskeletal Musculoskeletal: strength equal bilaterally - Psychiatric Psychiatric: appropriate mood/affect, intact judgment & insight - Neurologic Neurologic: CNII-XII intact - Allied Health Allied health notes reviewed: nursing Plan Activity: advance as tolerated, fall precautions Diet: low fat Special Instructions: record daily weights, record daily BP diary, smoking cessation Follow up with: LUCIANA CURTIS MD [Primary Care Provider] - 3-5 Days SHELLY FORD MD [Staff Physician] - 7 Days Prescriptions: Amoxicillin/Potassium Clav [Augmentin 875-125 Tablet] 1 each PO DAILY #5 tablet guaiFENesin DM [Guaifenesin Dm Syrup] 10 ml PO Q4H PRN #14 oral.liqd PRN Reason: Cough Nicotine [Habitrol] 21 mg TD QDAY #30 patch Prednisone [predniSONE 10 mg (6-Day Pack, 21 Tabs)] 10 mg PO .TAPER #1 tab.ds.pk Albuterol Sulfate [Proventil Hfa] 2 puff IH Q4-6H PRN #1 hfa.aer.ad PRN Reason: Wheezing Ipratropium/Albuterol Sulfate [DUONEB *Not for PRN Use*] 1 ampul IH QIDRT #90 ampul.neb Other Discharge Orders: Nebulizer (Amb) Location: None Selected
--- NOTE | 2019-05-06 11:15 | Progress Note ---
Assessment and Plan Patient says breathing better . O2 saturation on room air 95%. No acute respiratory distress. Says abdominal pain is better. ABG on room air. POC ABG pH 7.399 (7.35-7.45) 05/05/19 09:46 POC ABG pCO2 35.6 (35-45) 05/05/19 09:46 POC ABG pO2 70 (80-105) L 05/05/19 09:46 POC ABG HCO3 22.0 (22-26 mml/L) 05/05/19 09:46 POC ABG Total CO2 23 (23-27mmol/L) 05/05/19 09:46 POC ABG O2 Sat 94 05/05/19 09:46 Patient is going to be discharged. Recommend to come to my office for pulmonary follow up in 1 or 2 weeks. - Patient Problems (1) COPD with exacerbation Current Visit: Yes Status: Acute Plan to address problem: O2 2 litres via nasal canula Albuterol/atrovent aerosol treatments q 6 hours. Continue I/V solumedrol. Continue Levaquin. Continue famotidine. Recommend DVT prophylaxis S/C Lovenox. SCDs. Counselled to stop smoking. PFTs as out patient. (2) Acute bronchitis Current Visit: Yes Status: Acute Plan to address problem: Continue Levaquin. Subjective Date of service: 05/06/19 Interval history: Patient says breathing better . O2 saturation on room air 95%. No acute respiratory distress. Says abdominal pain is better. ABG on room air. POC ABG pH 7.399 (7.35-7.45) 05/05/19 09:46 POC ABG pCO2 35.6 (35-45) 05/05/19 09:46 POC ABG pO2 70 (80-105) L 05/05/19 09:46 POC ABG HCO3 22.0 (22-26 mml/L) 05/05/19 09:46 POC ABG Total CO2 23 (23-27mmol/L) 05/05/19 09:46 POC ABG O2 Sat 94 05/05/19 09:46 Patient is going to be discharged. Recommend to come to my office for pulmonary follow up in 1 or 2 weeks. Objective Vital Signs - 12hr 05/05/19 05/06/19 05/06/19 23:55 02:10 06:10 Temperature 98.1 F Pulse Rate 120 H 113 H Pulse Rate [ Anterior Bilateral Throughout] Pulse Rate [ 124 H From Monitor] Respiratory 20 18 Rate Respiratory Rate [Anterior Bilateral Throughout] Blood Pressure 113/69 O2 Sat by Pulse 98 94 Oximetry 05/06/19 05/06/19 05/06/19 07:15 07:19 07:22 Temperature Pulse Rate Pulse Rate [ 78 108 H Anterior Bilateral Throughout] Pulse Rate [ From Monitor] Respiratory Rate Respiratory 18 16 Rate [Anterior Bilateral Throughout] Blood Pressure O2 Sat by Pulse 97 Oximetry 05/06/19 05/06/19 07:31 09:38 Temperature 97.9 F Pulse Rate 120 H 112 H Pulse Rate [ Anterior Bilateral Throughout] Pulse Rate [ From Monitor] Respiratory 20 Rate Respiratory Rate [Anterior Bilateral Throughout] Blood Pressure 106/77 O2 Sat by Pulse 97 Oximetry Constitutional: no acute distress, alert Eyes: non-icteric ENT: oropharynx moist Neck: supple, no JVD Ascultation: Bilateral: wheezes, rhonchi Cardiovascular: regular rate and rhythm Gastrointestinal: normoactive bowel sounds, soft, non-tender Integumentary: normal Extremities: no cyanosis, no edema Neurologic: normal mental status, non-focal exam, pupils equal and round, CN II- XII normal Psychiatric: mood appropriate CBC and BMP: 05/05/19 05:19 05/05/19 05:19 ABG, PT/INR, D-dimer: ABG POC ABG pH 7.399 (7.35-7.45) 05/05/19 09:46 POC ABG pCO2 35.6 (35-45) 05/05/19 09:46 POC ABG pO2 70 (80-105) L 05/05/19 09:46 POC ABG HCO3 22.0 (22-26 mml/L) 05/05/19 09:46 POC ABG Total CO2 23 (23-27mmol/L) 05/05/19 09:46 POC ABG O2 Sat 94 05/05/19 09:46 PT/INR, D-dimer PT 13.2 Sec. (12.2-14.9) 05/04/19 12:04 INR 1.03 (0.87-1.13) 05/04/19 12:04 Abnormal lab findings: Abnormal Labs 07/06/1505/04/19 05/04/19 12:04 12:04 12:04 Seg Neuts % (Manual) Lymphocytes % (Manual) Eosinophils % (Manual) 16.0 H Seg Neutrophils # Man Lymphocytes # (Manual) Eosinophils # (Manual) 1.3 H APTT 20.0 L POC ABG pO2 Sodium Carbon Dioxide Creatinine Glucose 102 H Magnesium 2.60 H Total Creatine Kinase 303 H Albumin 05/05/19 05/05/19 05/05/19 05:19 05:19 09:46 Seg Neuts % (Manual) 96.0 H Lymphocytes % (Manual) 3.0 L Eosinophils % (Manual) Seg Neutrophils # Man 9.9 H Lymphocytes # (Manual) 0.3 L Eosinophils # (Manual) APTT POC ABG pO2 70 L Sodium 136 L Carbon Dioxide 20 L Creatinine 0.6 L Glucose 147 H Magnesium Total Creatine Kinase Albumin 3.6 L
== END 2019-05-06 11:05 | disposition home or self-care (01) | DRG 189 ==
LOC: ED 11:07 → 2B-ACE 14:46
PROVIDERS: ADMIT Internal Medicine; ATTEND Internal Medicine
PROC: 4A033R1 Measurement of Arterial Saturation, Peripheral, Percutaneous Approach (ICD-10-PCS; principal; 2019-05-05)
DX: J96.01 Acute respiratory failure with hypoxia (principal); J44.1 Chronic obstructive pulmonary disease with (acute) exacerbation; J44.0 Chronic obstructive pulmonary disease with (acute) lower respiratory infection; F17.200 Nicotine dependence, unspecified, uncomplicated; F41.9 Anxiety disorder, unspecified; E78.00 Pure hypercholesterolemia, unspecified; J96.02 Acute respiratory failure with hypercapnia; J20.9 Acute bronchitis, unspecified; E78.2 Mixed hyperlipidemia; F32.9 Major depressive disorder, single episode, unspecified; F41.1 Generalized anxiety disorder; F17.210 Nicotine dependence, cigarettes, uncomplicated; Z82.49 Family history of ischemic heart disease and other diseases of the circulatory system; Z71.6 Tobacco abuse counseling
CPT/HCPCS: 36415; 36600; 71045; 80053; 82550; 82803; 83036; 83735; 84484; 85007; 85025; 85610; 85730; 93005; 93010; 94640; 94760; 96365; 96375; 99406; G0378; A9270-GY; J1170; J1956; J2930; J3475; J7030; J7040

== ENCOUNTER 2019-08-18 08:18 | Inpatient (IN) | payer MEDICARE ==
[2019-08-18] MEDS ORDERED: PROVENTIL IH ONE (08:58)
[2019-08-18] MEDS ORDERED: SOLU-Medrol IM ONE (08:59)
--- NOTE | 2019-08-18 09:03 | XRay Report ---
CHEST 1 VIEW INDICATION / CLINICAL INFORMATION: Chest Pain. COMPARISON: 05/04/2019 and 09/04/2016 chest radiographs FINDINGS: HEART / MEDIASTINUM: Normal cardiomediastinal silhouette allowing for AP technique. A moderately size d hiatal hernia is again seen, with internal air-fluid level. No definite change in size. LUNGS / PLEURA: No significant pulmonary or pleural abnormality. No pneumothorax. An old right-sided rib fracture deformity is again seen. IMPRESSION: 1. No acute finding or significant change. Moderate hiatal hernia. Signer Name: Minesh Roa MD Signed: 08/18/2019 8:59 AM Workstation Name: [id number]
--- NOTE | 2019-08-18 09:04 | Emergency Department Report ---
ED Chest Pain HPI - General Chief Complaint: Chest Pain Stated Complaint: CHEST PAIN Time Seen by Provider: 08/18/19 08:32 Source: patient Mode of arrival: Ambulatory Limitations: No Limitations - History of Present Illness Initial Comments: 74-year-old female patient with history of COPD and IBS presents to the ED with complaints of bilateral lower chest pain and increasing shortness of breath x4 weeks. She describes the pain as spasmic and states it is a 10 out of 10 in severity. Pain is constant per patient. Denies any history of ME/CVA/DVT/PE or recent long travel. He admits to bilateral lower leg swelling and tenderness. She admits to a mild cough that is nonproductive and denies any fever or chills. Patient states her nebulizer is not helping with her shortness of breath. MD Complaint: chest pain -: Gradual, week(s) Pain Location: left chest, right chest Severity scale (0 -10): 10 Consistency: constant Worsens With: exertion Other Symptoms: cough. denies: fever, syncope - Related Data Home Medications Medication Instructions Recorded Confirmed Last Taken traMADol [Ultram 50 MG tab] 50 mg PO BID PRN 09/04/16 08/18/19 08/17/19 LORazepam [Ativan] 1 mg PO DAILY 05/04/19 08/18/19 08/17/19 Simvastatin 40 mg PO HS 05/04/19 08/18/19 08/17/19 Venlafaxine [Effexor] 75 mg PO BID 05/04/19 08/18/19 08/17/19 Previous Rx's Medication Instructions Recorded Last Taken Type Albuterol Sulfate [Proventil Hfa] 2 puff IH Q4-6H PRN #1 hfa.aer.ad 05/06/19 08/17/19 Rx Amoxicillin/Potassium Clav 1 each PO DAILY #5 tablet 05/06/19 08/14/19 Rx [Augmentin 875-125 Tablet] Ipratropium/Albuterol Sulfate 1 ampul IH QIDRT #90 ampul.neb 05/06/19 08/17/19 Rx [DUONEB *Not for PRN Use*] Nicotine [Habitrol] 21 mg TD QDAY #30 patch 05/06/19 08/17/19 Rx Prednisone [predniSONE 10 mg 10 mg PO .TAPER #1 tab.ds.pk 05/06/19 08/17/19 Rx (6-Day Pack, 21 Tabs)] guaiFENesin DM [Guaifenesin Dm 10 ml PO Q4H PRN #14 oral.liqd 05/06/19 08/17/19 Rx Syrup] Allergies Allergy/AdvReac Type Severity Reaction Status Date / Time No Known Allergies Allergy Unverified 09/04/16 10:05 Heart Score - HEART Score History: Slightly suspicious EKG: Normal Age: > 65 Risk factors: > 3 risk factors or hx of atherosclerotic disease Troponin: < normal limit HEART Score: 4 - Critical Actions Critical Actions: 4-6 pts:12-16.6% risk of adverse cardiac event. Should be admitted ED Review of Systems ROS: Stated complaint: CHEST PAIN Other details as noted in HPI Constitutional: denies: chills, fever Eyes: denies: eye pain, eye discharge, vision change ENT: denies: ear pain, throat pain Respiratory: cough, shortness of breath, SOB with exertion, SOB at rest, wheezing Cardiovascular: chest pain, dyspnea on exertion. denies: palpitations, syncope Gastrointestinal: denies: abdominal pain, nausea, vomiting, diarrhea, constipation Genitourinary: denies: urgency, dysuria, discharge Musculoskeletal: denies: back pain, joint swelling, arthralgia Skin: denies: rash, lesions Neurological: denies: headache, weakness, paresthesias Hematological/Lymphatic: denies: easy bleeding, easy bruising ED Past Medical Hx - Past Medical History Previous Medical History?: Yes Hx Psychiatric Treatment: Yes (anxiety) Hx COPD: Yes Additional medical history: high cholesterol - Surgical History Past Surgical History?: Yes Additional Surgical History: bilateral knee surgery. tubal . Rectovaginal fistula repair - Social History Smoking Status: Current Every Day Smoker Substance Use Type: None - Medications Home Medications: Home Medications Medication Instructions Recorded Confirmed Last Taken Type traMADol [Ultram 50 MG tab] 50 mg PO BID PRN 09/04/16 08/18/19 08/17/19 History LORazepam [Ativan] 1 mg PO DAILY 05/04/19 08/18/19 08/17/19 History Simvastatin 40 mg PO HS 05/04/19 08/18/19 08/17/19 History Venlafaxine [Effexor] 75 mg PO BID 05/04/19 08/18/1908/17/19 History Albuterol Sulfate [Proventil Hfa] 2 puff IH Q4-6H PRN #1 hfa.aer.ad 05/06/19 08/18/19 08/17/19 Rx Amoxicillin/Potassium Clav 1 each PO DAILY #5 tablet 05/06/19 08/18/19 08/14/19 Rx [Augmentin 875-125 Tablet] Ipratropium/Albuterol Sulfate 1 ampul IH QIDRT #90 ampul.neb 05/06/19 08/18/19 08/17/19 Rx [DUONEB *Not for PRN Use*] Nicotine [Habitrol] 21 mg TD QDAY #30 patch 05/06/19 08/18/19 08/17/19 Rx Prednisone [predniSONE 10 mg 10 mg PO .TAPER #1 tab.ds.pk 05/06/19 08/18/19 08/17/19 Rx (6-Day Pack, 21 Tabs)] guaiFENesin DM [Guaifenesin Dm 10 ml PO Q4H PRN #14 oral.liqd 05/06/19 08/18/19 08/17/19 Rx Syrup] ED Physical Exam - General Limitations: No Limitations General appearance: alert, in no apparent distress - Head Head exam: Present: atraumatic, normocephalic - Eye Eye exam: Present: normal appearance - ENT ENT exam: Present: mucous membranes moist - Neck Neck exam: Present: normal inspection - Respiratory Respiratory exam: Present: wheezes, rhonchi, chest wall tenderness. Absent: respiratory distress, rales - Cardiovascular Cardiovascular Exam: Present: normal rhythm, tachycardia, normal heart sounds - GI/Abdominal GI/Abdominal exam: Present: soft, normal bowel sounds. Absent: tenderness - Extremities Exam Extremities exam: Present: full ROM, tenderness (bilaterally in lower extremities), calf tenderness (laterally, no swelling noted.) - Back Exam Back exam: Present: full ROM - Neurological Exam Neurological exam: Present: alert, oriented X3 - Psychiatric Psychiatric exam: Present: normal affect, agitated - Skin Skin exam: Present: warm, dry, intact, normal color. Absent: rash ED Course Vital Signs 08/18/19 08/18/19 08/18/19 08:21 09:15 09:30 Temperature 98.1 F Pulse Rate 122 H 105 H 104 H Pulse Rate [ Anterior Bilateral Throughout] Respiratory 18 17 18 Rate Respiratory Rate [Anterior Bilateral Throughout] Blood Pressure 142/88 106/69 103/73 Blood Pressure [Right] O2 Sat by Pulse 95 94 94 Oximetry 08/18/19 08/18/19 08/18/19 09:51 10:26 10:30 Temperature Pulse Rate Pulse Rate [ 108 H Anterior Bilateral Throughout] Respiratory Rate Respiratory 17 Rate [Anterior Bilateral Throughout] Blood Pressure 113/78 117/76 Blood Pressure [Right] O2 Sat by Pulse 94 96 Oximetry 08/18/19 08/18/19 08/18/19 11:00 11:30 11:33 Temperature Pulse Rate 116 H Pulse Rate [ Anterior Bilateral Throughout] Respiratory 18 26 H Rate Respiratory Rate [Anterior Bilateral Throughout] Blood Pressure 108/69 108/69 Blood Pressure [Right] O2 Sat by Pulse 92 95 Oximetry 08/18/19 08/18/19 08/18/19 12:00 13:04 13:19 Temperature Pulse Rate 109 H 102 H Pulse Rate [ Anterior Bilateral Throughout] Respiratory 20 16 20 Rate Respiratory Rate [Anterior Bilateral Throughout] Blood Pressure 108/69 Blood Pressure 128/75 [Right] O2 Sat by Pulse 94 94 95 Oximetry 08/18/19 08/18/19 08/18/19 13:30 14:00 14:30 Temperature Pulse Rate Pulse Rate [ Anterior Bilateral Throughout] Respiratory 21 20 17 Rate Respiratory Rate [Anterior Bilateral Throughout] Blood Pressure 126/72 104/74 114/69 Blood Pressure [Right] O2 Sat by Pulse 92 93 96 Oximetry 08/18/19 08/18/19 08/18/19 15:00 16:30 16:59 Temperature 98.3 F Pulse Rate 105 H 98 H Pulse Rate [ Anterior Bilateral Throughout] Respiratory 22 23 Rate Respiratory Rate [Anterior Bilateral Throughout] Blood Pressure 99/56 120/74 Blood Pressure [Right] O2 Sat by Pulse 93 94 Oximetry - Reevaluation(s) Reevaluation #1: 08/18/19 09:06 Patient noted to be tachycardic in the setting of shortness of breath and chest pain. Admits to lower leg pain and swelling. D-dimer added Reevaluation #2: 08/18/19 10:39 D-dimer positive. CTA chest ordered. Troponin negative Reevaluation #3: 08/18/19 11:47 Patient initially satting 98% on room air. Nurse informed me that patient now satting 92% on room air and was placed on 2 L oxygen nasal cannula. She now satting at 95%. Pending CTA of chest. 08/18/19 13:29 ED Medical Decision Making - Lab Data Result diagrams: 08/18/19 08:43 08/18/19 08:43 - Radiology Data CHEST 1 VIEW INDICATION / CLINICAL INFORMATION: Chest Pain. COMPARISON: 05/04/2019 and 09/04/2016 chest radiographs FINDINGS: HEART / MEDIASTINUM: Normal cardiomediastinal silhouette allowing for AP technique. A moderately sized hiatal hernia is again seen, with internal air-fluid level. No definite change in size. LUNGS / PLEURA: No significant pulmonary or pleural abnormality. No pneumothorax. An old right-sided rib fracture deformity is again seen. IMPRESSION: 1. No acute finding or significant change. Moderate hiatal hernia. . . . . CTA CHEST WITH CONTRAST INDICATION : Shortness of breath, positive dimer. TECHNIQUE: Axial imaging performed through the chest, with contrast bolus timing set to maximize opacification of the pulmonary arteries. Sagittal and coronal reformatted images. 3-plane MIP reformatted images were obtained. All CT scans at this location are performed using CT dose reduction for ALARA by means of automated exposure control. 100 cc of Omnipaque 350 mL of intravenous contrast administered. COMPARISON: FINDINGS: Bolus: Contrast bolus is suboptimal for the pulmonary arteries. Most of the contrast is in the aorta. PTE: No gross large central pulmonary embolus. There is suboptimal evaluation of the distal pulmonary arteries. Mediastinum: Heart and great vessels appear normal. No pathologic mediastinal adenopathy. The thyroid gland, tracheobronchial tree and esophagus are unremarkable. A large hiatal hernia seen posterior to the heart. Lungs: Lungs are clear. Bones: Subtle compression deformities are identified at T3 and T6 levels which appear to be chronic. Moderate diffuse thoracic spondylosis. Upper abdomen: Limited imaging of the upper abdomen shows nothing acute. IMPRESSION: Suboptimal examination for pulmonary embolus. No large central PE is identified. Large hiatal hernia. Clear lungs. Thoracic spondylosis and chronic appearing thoracic compression deformities at T3 and T6. - Medical Decision Making 74-year-old female patient. History of COPD. Here for worsening shortness of breath and chest pain bilaterally in lower lungs. EKG and troponin WNL. Chest x-ray WNL. Highly elevated white count at 11.3. BNP normal. CTA chest negative for PE or acute pulmonary abnormalities. Patient remains hypoxic on room air at 90%. Patient satting at 96% on 3 L nasal cannula. With trevor Rivas ospitalist- will admit patient for COPD exacerbation Critical care attestation.: If time is entered above; I have spent that time in minutes in the direct care of this critically ill patient, excluding procedure time. ED Disposition Clinical Impression: COPD exacerbation Disposition: OP ADMIT IP TO THIS HOSP Is pt being admited?: Yes Condition: Stable
[2019-08-18 09:22] LABS: Basophils # (Auto) 0.1 K/mm3 (0.0-0.1); Basophils % (Auto) 0.5 % (0.0-1.8); Eosinophils % (Auto) 0.3 % (0.0-4.3); Hematocrit 35.8 % (30.3-42.9); Hemoglobin 11.8 gm/dl (10.1-14.3); Lymphocytes # (Auto) 0.8 K/mm3 (1.2-5.4); Lymphocytes % (Auto) 6.9 % (13.4-35.0); Mean Corpuscular HGB Conc 33 % (30-34); Mean Corpuscular Volume 86 fl (79-97); Monocytes # (Auto) 0.7 K/mm3 (0.0-0.8); Monocytes % (Auto) 6.5 % (0.0-7.3); Platelet Count 348 K/mm3 (140-440); Red Blood Count 4.19 M/mm3 (3.65-5.03); Red Cell Distribution Width 15.4 % (13.2-15.2)
[2019-08-18] MEDS: ATROVENT IH ONE ×2 (09:48→09:49)
[2019-08-18] MEDS ORDERED: XYLOCAINE 1% MPF 5 mL INFILTRATI ONE (09:54)
[2019-08-18 09:59] LABS: BUN/Creatinine Ratio 10; Blood Urea Nitrogen 6 mg/dL (7-17); Calcium 8.5 mg/dL (8.4-10.2); Hemolysis Index 4
--- NOTE | 2019-08-18 11:11 | Vascular Lab Report ---
DUPLEX DOPPLER LOWER EXTREMITY VEINS, BILATERAL INDICATION: Bilateral lower extremity pain and swelling for 3 days. TECHNIQUE: Duplex doppler imaging was performed through the veins of both lower extremities using ve nous compression and other maneuvers. COMPARISON: No relevant prior imaging study available. FINDINGS: Right Common femoral vein: Negative. Right Superficial femoral vein: Negative. Right Popliteal vein: Negative. Right Calf veins: Negative. Left Common femoral vein: Negative. Left Superficial femoral vein: Negative. Left Popliteal vein: Negative. Left Calf veins: Negative. Additional findings: None.. IMPRESSION: No sonographic evidence for DVT in either lower extremity. Signer Name: Trung Hylton Jr, MD Signed: 08/18/2019 11:07 AM Workstation Name: [id number]
[2019-08-18] MEDS ORDERED: NORCO 5/325 PO ONE (11:22)
--- NOTE | 2019-08-18 13:18 | Cat Scan Report ---
CTA CHEST WITH CONTRAST INDICATION : Shortness of breath, positive dimer. TECHNIQUE: Axial imaging performed through the chest, with contrast bolus timing set to maximize opa cification of the pulmonary arteries. Sagittal and coronal reformatted images. 3-plane MIP reformatte d images were obtained. All CT scans at this location are performed using CT dose reduction for ALAR A by means of automated exposure control. 100 cc of Omnipaque 350 mL of intravenous contrast administered. COMPARISON: FINDINGS: Bolus: Contrast bolus is suboptimal for the pulmonary arteries. Most of the contrast is in the aorta . PTE: No gross large central pulmonary embolus. There is suboptimal evaluation of the distal pulmonar y arteries. Mediastinum: Heart and great vessels appear normal. No pathologic mediastinal adenopathy. The thyro id gland, tracheobronchial tree and esophagus are unremarkable. A large hiatal hernia seen posterior to the heart. Lungs: Lungs are clear. Bones: Subtle compression deformities are identified at T3 and T6 levels which appear to be chronic. Moderate diffuse thoracic spondylosis. Upper abdomen: Limited imaging of the upper abdomen shows nothing acute. IMPRESSION: Suboptimal examination for pulmonary embolus. No large central PE is identified. Large hiatal hernia. Clear lungs. Thoracic spondylosis and chronic appearing thoracic compression deformities at T3 and T6. Signer Name: Trung Hylton Jr, MD Signed: 08/18/2019 1:14 PM Workstation Name: [id number]
[2019-08-18] MEDS ORDERED: NACL 0.9% 1000 ML 1,000 ML IV ONE (14:32)
[2019-08-18] MEDS ORDERED: ULTRAM PO PRN (23:11)
[2019-08-18] MEDS ORDERED: PROAIR IH PRN (23:11)
[2019-08-18] MEDS ORDERED: PROVENTIL IH PRN (23:53)
[2019-08-19] MEDS ORDERED: ZOFRAN IV PRN (00:20)
[2019-08-19] MEDS ORDERED: DILAUDID IV PRN (00:20)
[2019-08-19] MEDS ORDERED: TYLENOL PO PRN (00:20)
[2019-08-19] MEDS ORDERED: PERCOCET 5/325 PO PRN (00:20)
[2019-08-19] MEDS ORDERED: SODIUM CHLORIDE FLUSH SYRINGE 10 ML IV PRN (00:20)
[2019-08-19] MEDS ORDERED: PROVENTIL IH PRN (00:22)
--- NOTE | 2019-08-19 00:26 | History and Physical Report ---
History of Present Illness Date of examination: 08/18/19 Date of admission: 08/18/19 15:53 Chief complaint: Shortness of breath and wheezing for 2 days Chest pain for 2 days History of present illness: 74-year-old female with history of COPD, hyperlipidemia and depression comes in for increasing shortness of breath for 4 weeks but more so for the last 2 days. Severe wheezing present. Cough productive of mucoid sputum. Patient also has retrosternal chest pain and bilateral chest pain secondary to coughing. No diaphoresis. No palpitations. No fever or chills. No exacerbating or relieving factors. No recent travel. Past Medical History Previous Medical History?: Yes Psychiatric Treatment: Yes (anxiety) COPD: Yes High cholesterol Surgical History Past Surgical History?: Yes Additional Surgical History: bilateral knee surgery. tubal . Rectovaginal fistula repair Social History Smoking Status: Current Every Day Smoker Substance Use Type: None Family history Htn Medications Home Medications: Home Medications Medication Instructions Recorded Confirmed Last Taken Type traMADol [Ultram 50 MG tab] 50 mg PO BID PRN 09/04/16 08/18/19 08/17/19 History LORazepam [Ativan] 1 mg PO DAILY 05/04/19 08/18/19 08/17/19 History Simvastatin 40 mg PO HS 05/04/19 08/18/19 08/17/19 History Venlafaxine [Effexor] 75 mg PO BID 05/04/19 08/18/19 08/17/19 History Albuterol Sulfate [Proventil Hfa] 2 puff IH Q4-6H PRN #1 hfa.aer.ad 05/06/19 08/18/19 08/17/19 Rx Amoxicillin/Potassium Clav 1 each PO DAILY #5 tablet 05/06/19 08/18/19 08/14/19 Rx [Augmentin 875-125 Tablet] Ipratropium/Albuterol Sulfate 1 ampul IH QIDRT #90 ampul.neb 05/06/19 08/18/19 08/17/19 Rx [DUONEB *Not for PRN Use*] Nicotine [Habitrol] 21 mg TD QDAY #30 patch 05/06/19 08/18/19 08/17/19 Rx Prednisone [predniSONE 10 mg 10 mg PO .TAPER #1 tab.ds.pk 05/06/19 08/18/1908/17/19 Rx (6-Day Pack, 21 Tabs)] guaiFENesin DM [Guaifenesin Dm 10 ml PO Q4H PRN #14 oral.liqd 05/06/19 08/18/19 08/17/19 Rx Syrup] Review of Systems ROS: Stated complaint: CHEST PAIN Other details as noted in HPI Constitutional: denies: chills, fever Eyes: denies: eye pain, eye discharge, vision change ENT: denies: ear pain, throat pain Respiratory: cough, shortness of breath, SOB with exertion, SOB at rest, wheezing Cardiovascular: chest pain, dyspnea on exertion. denies: palpitations, syncope Gastrointestinal: denies: abdominal pain, nausea, vomiting, diarrhea, constipation Genitourinary: denies: urgency, dysuria, discharge Musculoskeletal: denies: back pain, joint swelling, arthralgia Skin: denies: rash, lesions Neurological: denies: headache, weakness, paresthesias Hematological/Lymphatic: denies: easy bleeding, easy bruising Medications and Allergies Allergies Allergy/AdvReac Type Severity Reaction Status Date / Time No Known Allergies Allergy Unverified 09/04/16 10:05 Home Medications Medication Instructions Recorded Confirmed Last Taken Type traMADol [Ultram 50 MG tab] 50 mg PO BID PRN 09/04/16 08/18/19 08/17/19 History LORazepam [Ativan] 1 mg PO DAILY 05/04/19 08/18/19 08/17/19 History Simvastatin 40 mg PO HS 05/04/19 08/18/19 08/17/19 History Venlafaxine [Effexor] 75 mg PO BID 05/04/19 08/18/19 08/17/19 History Albuterol Sulfate [Proventil Hfa] 2 puff IH Q4-6H PRN #1 hfa.aer.ad 05/06/19 08/18/19 08/17/19 Rx Amoxicillin/Potassium Clav 1 each PO DAILY #5 tablet 05/06/19 08/18/19 08/14/19 Rx [Augmentin 875-125 Tablet] Ipratropium/Albuterol Sulfate 1 ampul IH QIDRT #90 ampul.neb 05/06/19 08/18/19 08/17/19 Rx [DUONEB *Not for PRN Use*] Nicotine [Habitrol] 21 mg TD QDAY #30 patch 05/06/19 08/18/19 08/17/19 Rx Prednisone [predniSONE 10 mg 10 mg PO .TAPER #1 tab.ds.pk 05/06/19 08/18/19 08/17/19 Rx (6-Day Pack, 21 Tabs)] guaiFENesin DM [Guaifenesin Dm 10 ml PO Q4H PRN #14 oral.liqd 05/06/19 08/18/19 08/17/19 Rx Syrup] Active Meds: Active Medications Albuterol (Proventil) 2.5 mg IH Q4HRT PRN PRN Reason: Shortness Of Breath Albuterol/Ipratropium (Duoneb *Not For Prn Use*) 1 ampul IH QIDRT [facility] Guaifenesin (Guaifenesin Dm Syrup) 10 ml PO Q4H PRN PRN Reason: Cough Levofloxacin/Dextrose (Levaquin 500mg/100ml) 500 mg in 100 mls @ 100 mls/hr IV Q24HR SHAMEKA; Protocol Methylprednisolone Sodium Succinate (Solu-Medrol) 60 mg IV Q8H SHAMEKA Nicotine (Habitrol) 21 mg TD QDAY SHAMEKA Pravastatin Sodium (Pravachol) 80 mg PO QHS SH[facility] Tramadol HCl (Ultram) 50 mg PO BID PRN PRN Reason: PAIN (4-6) Venlafaxine HCl (Effexor) 75 mg PO BID [facility] Exam - Constitutional Vitals: Temp Pulse Resp BP Pulse Ox 98.6 F 111 H 18 131/82 99 08/18/19 20:09 08/18/19 20:09 08/18/19 20:09 08/18/19 20:09 08/18/19 20:09 General appearance: Present: mild distress, well-nourished - EENT Eyes: Present: PERRL ENT: hearing intact, clear oral mucosa - Neck Neck: Present: supple, normal ROM - Respiratory Respiratory effort: normal Respiratory: bilateral: CTA, diminished, rhonchi, wheezing - Cardiovascular Heart rate: 78 Rhythm: regular Heart Sounds: Present: S1 & S2. Absent: rub, click - Extremities Extremities: no ischemia, pulses intact, pulses symmetrical, No edema Peripheral Pulses: within normal limits - Abdominal General gastrointestinal: Present: soft, non-tender, non-distended, normal bowel sounds Female genitourinary: Present: normal - Integumentary Integumentary: Present: clear, warm, dry - Musculoskeletal Musculoskeletal: gait normal, strength equal bilaterally - Psychiatric Psychiatric: appropriate mood/affect, intact judgment & insight - Neurologic Neurologic: CNII-XII intact, moves all extremities - Allied Health Allied health notes reviewed: nursing, case management Results - Labs CBC & Chem 7: 08/18/19 08:43 08/18/19 08:43 Labs: Laboratory Last Values WBC 11.3 K/mm3 (4.5-11.0) H 08/18/19 08:43 RBC 4.19 M/mm3 (3.65-5.03) 08/18/19 08:43 Hgb 11.8 gm/dl (10.1-14.3) 08/18/19 08:43 Hct 35.8 % (30.3-42.9) 08/18/19 08:43 MCV 86 fl (79-97) 08/18/19 08:43 MCH 28 pg (28-32) 08/18/19 08:43 MCHC 33 % (30-34) 08/18/19 08:43 RDW 15.4 % (13.2-15.2) H 08/18/19 08:43 Plt Count 348 K/mm3 (140-440) 08/18/19 08:43 Lymph % (Auto) 6.9 % (13.4-35.0) L 08/18/19 08:43 [place] % (Auto) 6.5 % (0.0-7.3) 08/18/19 08:43 Eos % (Auto) 0.3 % (0.0-4.3) 08/18/19 08:43 Baso % (Auto) 0.5 % (0.0-1.8) 08/18/19 08:43 Lymph # 0.8 K/mm3 (1.2-5.4) L 08/18/19 08:43 [place] # 0.7 K/mm3 (0.0-0.8) 08/18/19 08:43 Eos # 0.0 K/mm3 (0.0-0.4) 08/18/19 08:43 Baso # 0.1 K/mm3 (0.0-0.1) 08/18/19 08:43 Seg Neutrophils % 85.8 % (40.0-70.0) H 08/18/19 08:43 Seg Neutrophils # 9.7 K/mm3 (1.8-7.7) H 08/18/19 08:43 D-Dimer 710.30 ng/mlDDU (0-234) H 08/18/19 09:09 Sodium 136 mmol/L (137-145) L 08/18/19 08:43 Potassium 3.4 mmol/L (3.6-5.0) L 08/18/19 08:43 Chloride 98.8 mmol/L (98-107) 08/18/19 08:43 Carbon Dioxide 17 mmol/L (22-30) L 08/18/19 08:43 Anion Gap 24 mmol/L 08/18/19 08:43 BUN 6 mg/dL (7-17) L 08/18/19 08:43 Creatinine 0.6 mg/dL (0.7-1.2) L 08/18/19 08:43 Estimated GFR > 60 ml/min 08/18/19 08:43 BUN/Creatinine Ratio 10 % 08/18/19 08:43 Glucose 152 mg/dL (65-100) H 08/18/19 08:43 Calcium 8.5 mg/dL (8.4-10.2) 08/18/19 08:43 Troponin T < 0.010 ng/mL (0.00-0.029) 08/18/19 14:42 NT-Pro-B Natriuret Pep 225.0 pg/mL (0-900) 08/18/19 09:09 Short CBC 08/18/19 Range/Units 08:43 WBC 11.3 H (4.5-11.0) K/mm3 Hgb 11.8 (10.1-14.3) gm/dl Hct 35.8 (30.3-42.9) % Plt Count 348 (140-440) K/mm3 BMP 08/18/19 08:43 Sodium 136 L Potassium 3.4 L Chloride 98.8 Carbon Dioxide 17 L BUN 6 L Creatinine 0.6 L Glucose 152 H Calcium 8.5 Cardiac Enzymes 08/18/19 08/18/19 08/18/19 Range/Units 08:43 11:09 14:42 Troponin T < 0.010 < 0.010 < 0.010 (0.00-0.029) ng/mL - Imaging and Cardiology EKG: report reviewed (sinus tachycardia heart rate of 111 per minute) Chest x-ray: report reviewed Venous US: report reviewed Imaging and Cardiology: CTA chest IMPRESSION: Suboptimal examination for pulmonary embolus. No large central PE is identified. Large hiatal hernia. Clear lungs. Thoracic spondylosis and chronic appearing thoracic compression deformities at T3 and T6. Chest x-ray IMPRESSION: 1. No acute finding or significant change. Moderate hiatal hernia. Assessment and Plan Advance Directives: Yes (full code) VTE prophylaxis?: Chemical Plan of care discussed with patient/family: Yes - Patient Problems (1) Acute respiratory failure Current Visit: Yes Status: Acute Qualifiers: Respiratory failure complication: hypoxia Qualified Code(s): J96.01 - Acute respiratory failure with hypoxia Plan to address problem: Patient on oxygen and nebulizer treatments and steroids and IV antibiotics (2) COPD exacerbation Current Visit: Yes Status: Acute Plan to address problem: Patient initiated on nebulizer treatments and IV Solu-Medrol and IV antibiotics (3) LANDEN (generalized anxiety disorder) Current Visit: No Status: Chronic Plan to address problem: Continue lorazepam (4) HLD (hyperlipidemia) Current Visit: No Status: Chronic Qualifiers: Hyperlipidemia type: mixed hyperlipidemia Qualified Code(s): E78.2 - Mixed hyperlipidemia Plan to address problem: Continue statins (5) Hypokalemia Current Visit: Yes Status: Acute Plan to address problem: Supplemented (6) Hyponatremia Current Visit: Yes Status: Acute Plan to address problem: Very mild (7) Chest pain Current Visit: Yes Status: Acute Plan to address problem: Chest pain protocol Serial troponins Lexiscan in am (8) DVT prophylaxis Current Visit: No Status: Acute Plan to address problem: On Lovenox and GI prophylaxis
[2019-08-19] MEDS ORDERED: SOLU-Medrol IV SCH ×2 (01:00→23:00)
[2019-08-19] MEDS: SOLU-Medrol IV SCH ×4 (01:01→23:58)
[2019-08-19] MEDS ORDERED: LEXISCAN IV ONE (07:55)
[2019-08-19] MEDS ORDERED: DUONEB *Not for PRN Use IH SCH (08:00)
[2019-08-19] MEDS: DUONEB *Not for PRN Use IH SCH ×4 (08:45→20:22)
[2019-08-19] MEDS ORDERED: LEVAQUIN 500MG/100ML 500 MG/100 ML BAG IV SCH (10:00)
[2019-08-19] MEDS: HABITROL TD SCH (10:52)
[2019-08-19] MEDS: PEPCID PO SCH ×2 (10:53→21:37)
[2019-08-19] MEDS: LEVAQUIN 750MG/150ML 750 MG/150 ML BAG IV SCH (10:53)
[2019-08-19] MEDS: EFFEXOR PO SCH ×2 (10:53→21:38)
[2019-08-19] MEDS: SODIUM CHLORIDE FLUSH SYRINGE 10 ML IV SCH ×2 (10:54→21:43)
--- NOTE | 2019-08-19 12:04 | Event Note ---
Date: 08/19/19 Detailed cardiology consultation dictated. S/p lexiscan MPI stress test today which was negative. TTE reviewed with no significant abnormalities. Pt may discharge home from cardiology standpoint. Recommend follow up in our office with Dr. Maria De Jesus Still within 1-2 weeks ([phone]). Laney YOUNG NP / DR. Maria De Jesus STILL
--- NOTE | 2019-08-19 12:06 | Progress Note ---
Assessment and Plan Assessment and plan: --Chest pain typical Current Visit: Yes Status: Acute Chest pain improved Stress test negative for ischemia Chest pain probably secondary to GERD -- Acute respiratory failure Current Visit: Yes Status: Acute Patient on oxygen and nebulizer treatments and tapering doses of steroids steroids and IV antibiotics --COPD exacerbation Current Visit: Yes Status: Acute : Patient initiated on nebulizer treatments and IV Solu-Medrol and IV antibiotics -- LANDEN (generalized anxiety disorder) Current Visit: No Status: Chronic Continue lorazepam --HLD (hyperlipidemia) Current Visit: No Status: Chronic Continue statins -- Hypokalemia Current Visit: Yes Status: Acute Supplemented -- Hyponatremia Current Visit: Yes Status: Acute Very mild -- DVT prophylaxis Current Visit: No Status: Acute On Lovenox and GI prophylaxis Monitor clinically and adjust the management as needed History Interval history: Patient seen and examined medical records reviewed Patient underwent stress test which was negative for ischemia Still complains of mild shortness of breath and wheezing Alert awake oriented 3 Vital signs noted Hospitalist Physical - Constitutional Vitals: Temp Pulse Resp BP Pulse Ox 97.8 F 88 18 129/73 97 08/19/19 07:43 08/19/19 07:43 08/19/19 07:43 08/19/19 09:15 08/19/19 07:43 General appearance: Present: no acute distress, well-nourished - EENT Eyes: Present: PERRL, EOM intact - Neck Neck: Present: supple, normal ROM - Respiratory Respiratory effort: normal Respiratory: bilateral: diminished, wheezing, negative: rales, rhonchi - Cardiovascular Rhythm: regular Heart Sounds: Present: S1 & S2 - Extremities Extremities: no ischemia, No edema - Abdominal General gastrointestinal: soft, non-tender, non-distended, normal bowel sounds - Integumentary Integumentary: Present: clear, warm - Psychiatric Psychiatric: appropriate mood/affect, cooperative - Neurologic Neurologic: moves all extremities Results - Labs CBC & Chem 7: 08/18/19 08:43 08/18/19 08:43 Labs: Laboratory Last Values WBC 11.3 K/mm3 (4.5-11.0) H 08/18/19 08:43 RBC 4.19 M/mm3 (3.65-5.03) 08/18/19 08:43 Hgb 11.8 gm/dl (10.1-14.3) 08/18/19 08:43 Hct 35.8 % (30.3-42.9) 08/18/19 08:43 MCV 86 fl (79-97) 08/18/19 08:43 MCH 28 pg (28-32) 08/18/19 08:43 MCHC 33 % (30-34) 08/18/19 08:43 RDW 15.4 % (13.2-15.2) H 08/18/19 08:43 Plt Count 348 K/mm3 (140-440) 08/18/19 08:43 Lymph % (Auto) 6.9 % (13.4-35.0) L 08/18/19 08:43 [place] % (Auto) 6.5 % (0.0-7.3) 08/18/19 08:43 Eos % (Auto) 0.3 % (0.0-4.3) 08/18/19 08:43 Baso % (Auto) 0.5 % (0.0-1.8) 08/18/19 08:43 Lymph # 0.8 K/mm3 (1.2-5.4) L 08/18/19 08:43 [place] # 0.7 K/mm3 (0.0-0.8) 08/18/19 08:43 Eos # 0.0 K/mm3 (0.0-0.4) 08/18/19 08:43 Baso # 0.1 K/mm3 (0.0-0.1) 08/18/19 08:43 Seg Neutrophils % 85.8 % (40.0-70.0) H 08/18/19 08:43 Seg Neutrophils # 9.7 K/mm3 (1.8-7.7) H 08/18/19 08:43 D-Dimer 710.30 ng/mlDDU (0-234) H 08/18/19 09:09 Sodium 136 mmol/L (137-145) L 08/18/19 08:43 Potassium 3.4 mmol/L (3.6-5.0) L 08/18/19 08:43 Chloride 98.8 mmol/L (98-107) 08/18/19 08:43 Carbon Dioxide 17 mmol/L (22-30) L 08/18/19 08:43 Anion Gap 24 mmol/L 08/18/19 08:43 BUN 6 mg/dL (7-17) L 08/18/19 08:43 Creatinine 0.6 mg/dL (0.7-1.2) L 08/18/19 08:43 Estimated GFR > 60 ml/min 08/18/19 08:43 BUN/Creatinine Ratio 10 % 08/18/19 08:43 Glucose 152 mg/dL (65-100) H 08/18/19 08:43 Hemoglobin A1c 6.1 % (4-6) H 08/19/19 02:30 Calcium 8.5 mg/dL (8.4-10.2) 08/18/19 08:43 Troponin T < 0.010 ng/mL (0.00-0.029) 08/19/19 06:11 NT-Pro-B Natriuret Pep 225.0 pg/mL (0-900) 08/18/19 09:09 Active Medications - Current Medications Current Medications: Generic Name Dose Route Start Last Admin Trade Name Freq PRN Reason Stop Dose Admin Acetaminophen 650 mg 08/19/19 00:20 Tylenol PO Q4H PRN Pain MILD(1-3)/Fever >100.5/PABLO Albuterol 2.5 mg 08/18/19 23:53 Proventil IH Q4HRT PRN Shortness Of Breath Albuterol/Ipratropium 1 ampul 08/19/19 08:00 08/19/19 11:07 Duoneb *Not For Prn Use* IH 1 ampul QIDRT [facility] Administration Enoxaparin Sodium 40 mg 08/19/19 22:00 Lovenox SUB-Q QDAY@2200 [facility] Famotidine 20 mg 08/19/19 10:00 08/19/19 10:53 Pepcid PO 20 mg BID SHAME[facility] Administration Guaifenesin 10 ml 08/18/19 23:11 Guaifenesin Dm Syrup PO Q4H PRN Cough Hydromorphone HCl 0.5 mg 08/19/19 00:20 Dilaudid IV Q3H PRN Pain , Severe (7-10) Levofloxacin/Dextrose 750 mg in 150 mls @ 100 mls/hr 08/19/19 10:00 08/19/19 10:53 Levaquin 750mg/150ml IV 100 mls/hr Q24HR [facility] Administration Protocol Lorazepam 1 mg 08/19/19 22:00 Ativan PO QHS [facility] Methylprednisolone Sodium Succinate 60 mg 08/19/19 00:00 08/19/19 07:19 Solu-Medrol IV 60 mg Q8H [facility] Administration Nicotine 21 mg 08/19/19 10:00 08/19/19 10:52 Habitrol TD 21 mg QDAY SH[facility] Administration Ondansetron HCl 4 mg 08/19/19 00:20 Zofran IV Q8H PRN Nausea And Vomiting Oxycodone/Acetaminophen 1 tab 08/19/19 00:20 08/19/19 01:04 Percocet 5/325 PO 1 tab Q6H PRN Administration Pain, Moderate (4-6) Pravastatin Sodium 80 mg 08/19/19 22:00 Pravachol PO QHS [facility] Sodium Chloride 10 ml 08/19/19 10:00 08/19/19 10:54 Sodium Chloride Flush Syringe 10 Ml IV 10 ml BID SHAME[facility] Administration Sodium Chloride 10 ml 08/19/19 00:20 Sodium Chloride Flush Syringe 10 Ml IV PRN PRN LINE FLUSH Tramadol HCl 50 mg 08/18/19 23:11 Ultram PO BID PRN PAIN (4-6) Venlafaxine HCl 75 mg 08/19/19 10:00 08/19/19 10:53 Effexor PO 75 mg BID SH[facility] Administration
--- NOTE | 2019-08-19 13:52 | Consultation ---
REFERRING PHYSICIAN: Dr. Byrnes. PRIMARY CARE PHYSICIAN: Dr. Dickerson. REASON FOR CONSULTATION: Advice and opinion regarding chest pain. HISTORY OF PRESENT ILLNESS: The patient is a very pleasant 74-year-old female originally from [place] presents here for shortness of breath and chest pain for 2 days. She has a longstanding history of COPD, hyperlipidemia and depression. She states she had sharp chest pain over the past several days, coughing, sputum production. She denies any palpitations, syncope, presyncope, blurred vision, abdominal pain, leg pain, rashes, nausea or vomiting. PAST MEDICAL HISTORY: As aforementioned. PAST SURGICAL HISTORY: Bilateral knee surgery, tubal ligation, rectovaginal fistula repair. SOCIAL HISTORY: She currently smokes every day. I spent over 5 minutes discussing smoking cessation and techniques. FAMILY HISTORY: Hypertension. MEDICATIONS: Inpatient and outpatient medications reviewed. REVIEW OF SYSTEMS: As per HPI. PHYSICAL EXAMINATION: VITAL SIGNS: Blood pressure is 130/70. She is afebrile. Tele reveals sinus rhythm in the high 90s. No arrhythmias. O2 sats 99% on 2 liters. ECG reveals normal sinus rhythm, heart rate of about 105. No acute ST segment shift. LABORATORY DATA: D-dimer is elevated. Cardiac enzymes are negative x 2. Potassium was 3.4 yesterday, WBC is 11.3, hemoglobin 11.8, hematocrit 35.8, platelets 348. CTA chest shows no evidence of pulmonary embolus. ASSESSMENT AND PLAN: The patient is a pleasant 74-year-old female: 1. Chest pain with typical and atypical features. Cardiac enzymes negative x 2. EKG without acute shift. Stress thallium pending. 2. History of chronic obstructive pulmonary disease, active tobacco abuse, likely exacerbation. 3. Hypertension. 4. Anxiety. 5. Hyperlipidemia. The patient is clinically stable. We will check an echocardiogram, nuclear stress test pending. Continue current medications. Would add aspirin. Continue statin therapy. She is on Lovenox. Further plan depends on test results. JOB# [id number] SBM/NTS
--- NOTE | 2019-08-19 14:57 | Treadmill Report ---
NUCLEAR STRESS TEST REFERRING PHYSICIAN: Dr. Byrnes. PROTOCOL: The patient was brought to the stress lab in postabsorptive state, given 10 mCi of technetium 99m at rest. The patient underwent rest imaging. The patient underwent Lexiscan stress test per standard protocol. At peak stress, the patient was given 26 mCi of technetium 99m. Shortly thereafter, the patient underwent stress imaging. Raw imaging reveals mild GI artifact, no significant motion effect. SPECT images examined carefully in the horizontal long axis, vertical long axis, and short axis views. There is normal homogenous uptake of radioisotope in all reported segments. No evidence of a significant fixed or reversible perfusion defects suggestive of prior infarction or ischemia. Gated wall motion reveals normal systolic thickening, calculated ejection fraction 68%, no TID. CONCLUSIONS: 1. Normal myocardial perfusion scan without evidence of active ischemia or prior infarction. 2. Normal left ventricular systolic performance without evidence of transient ischemic dilatation or stress-induced segmental wall motion abnormalities. JOB# [id number] SBOzzie/CHRISTINA
[2019-08-19] MEDS: PULMICORT IH SCH (20:22)
[2019-08-19] MEDS ORDERED: ENOXAPARIN SUB-Q SCH (22:00)
[2019-08-19] MEDS ORDERED: ATIVAN PO SCH (22:00)
[2019-08-19] MEDS ORDERED: PRAVACHOL PO SCH (22:00)
--- NOTE | 2019-08-19 22:13 | Consultation ---
History of Present Illness Consult date: 08/19/19 Reason for consult: dyspnea, cough, chest pain, COPD History of present illness: PULMONARY AND CRITICAL CARE CONSULTATION DR. VELAZQUEZ THANK YOU FOR ASKING US TO PARTICIPATE IN THE CARE OF THIS PATIENT. 74-year-old female with history of COPD, hyperlipidemia and depression comes in for increasing shortness of breath for 4 weeks but more so for the last 2 days. Severe wheezing present. Cough productive of mucoid sputum. Patient also has retrosternal chest pain and bilateral chest pain secondary to coughing. No diaphoresis. No palpitations. No fever or chills. No exacerbating or rel ieving factors. No recent travel. Patient has heavy history of smoking 3 packs x 20 years. Still smoking. Counselled to stop smoking. Denies alcohol or drug abuse. No known drug allergies. 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 Children !. Patient presently resting on 2 litres O2. O2 saturation 98%. Chest xray no acute finding. Reported hiatal hernia. Angio CT of chest reported no large central emboli. Lungs clear. Large hiatal hernia. Past History Past Medical History: COPD Medications and Allergies Allergies Allergy/AdvReac Type Severity Reaction Status Date / Time No Known Allergies Allergy Unverified 09/04/16 10:05 Home Medications Medication Instructions Recorded Confirmed Last Taken Type traMADol [Ultram 50 MG tab] 50 mg PO BID PRN 09/04/16 08/18/19 08/17/19 History LORazepam [Ativan] 1 mg PO DAILY 05/04/19 08/18/19 08/17/19 History Simvastatin 40 mg PO HS 05/04/19 08/18/19 08/17/19 History Venlafaxine [Effexor] 75 mg PO BID 05/04/19 08/18/19 08/17/19 History Albuterol Sulfate [Proventil Hfa] 2 puff IH Q4-6H PRN #1 hfa.aer.ad 05/06/19 08/18/19 08/17/19 Rx Amoxicillin/Potassium Clav 1 each PO DAILY #5 tablet 05/06/19 08/18/19 08/14/19 Rx [Augmentin 875-125 Tablet] Ipratropium/Albuterol Sulfate 1 ampul IH QIDRT #90 ampul.neb 05/06/19 08/18/19 08/17/19 Rx [DUONEB *Not for PRN Use*] Nicotine [Habitrol] 21 mg TD QDAY #30 patch 05/06/19 08/18/19 08/17/19 Rx Prednisone [predniSONE 10 mg 10 mg PO .TAPER #1 tab.ds.pk 05/06/19 08/18/19 08/17/19 Rx (6-Day Pack, 21 Tabs)] guaiFENesin DM [Guaifenesin Dm 10 ml PO Q4H PRN #14 oral.liqd 05/06/19 08/18/19 08/17/19 Rx Syrup] Active Meds: Active Medications Acetaminophen (Tylenol) 650 mg PO Q4H PRN PRN Reason: Pain MILD(1-3)/Fever >100.5/PABLO Albuterol (Proventil) 2.5 mg IH Q4HRT PRN PRN Reason: Shortness Of Breath Albuterol/Ipratropium (Duoneb *Not For Prn Use*) 1 ampul IH QIDRT [facility] Last Admin: 08/19/19 20:22 Dose: 1 ampul Documented by: Budesonide (Pulmicort) 0.5 mg IH Q12HRT [facility] Last Admin: 08/19/19 20:22 Dose: 0.5 mg Documented by: Enoxaparin Sodium (Lovenox) 40 mg SUB-Q QDAY@2200 [facility] Last Admin: 08/19/19 21:39 Dose: 40 mg Documented by: Famotidine (Pepcid) 20 mg PO BID [facility] Last Admin: 08/19/19 21:37 Dose: 20 mg Documented by: Guaifenesin (Guaifenesin Dm Syrup) 10 ml PO Q4H PRN PRN Reason: Cough Hydromorphone HCl (Dilaudid) 0.5 mg IV Q3H PRN PRN Reason: Pain , Severe (7-10) Levofloxacin/Dextrose (Levaquin 750mg/150ml) 750 mg in 150 mls @ 100 mls/hr IV Q24HR [facility]; Protocol Last Infusion: 08/19/19 17:42 Dose: Infused Documented by: Lorazepam (Ativan) 1 mg PO QHS [facility] Last Admin: 08/19/19 21:38 Dose: 1 mg Documented by: Methylprednisolone Sodium Succinate (Solu-Medrol) 60 mg IV Q8H [facility] Last Admin: 08/19/19 16:53 Dose: 60 mg Documented by: Nicotine (Habitrol) 21 mg TD QDAY [facility] Last Admin: 08/19/19 10:52 Dose: 21 mg Documented by: Ondansetron HCl (Zofran) 4 mg IV Q8H PRN PRN Reason: Nausea And Vomiting Oxycodone/Acetaminophen (Percocet 5/325) 1 tab PO Q6H PRN PRN Reason: Pain, Moderate (4-6) Last Admin: 08/19/19 01:04 Dose: 1 tab Documented by: Pravastatin Sodium (Pravachol) 80 mg PO QHS [facility] Last Admin: 08/19/19 21:38 Dose: 80 mg Documented by: Sodium Chloride (Sodium Chloride Flush Syringe 10 Ml) 10 ml IV BID [facility] Last Admin: 08/19/19 21:43 Dose: 10 ml Documented by: Sodium Chloride (Sodium Chloride Flush Syringe 10 Ml) 10 ml IV PRN PRN PRN Reason: LINE FLUSH Tramadol HCl (Ultram) 50 mg PO BID PRN PRN Reason: PAIN (4-6) Venlafaxine HCl (Effexor) 75 mg PO BID [facility] Last Admin: 08/19/19 21:38 Dose: 75 mg Documented by: Review of Systems All systems: negative Physical Examination Vital signs: Vital Signs Temp Pulse Resp BP Pulse Ox 98.1 F 122 H 18 142/88 95 08/18/19 08:21 08/18/19 08:21 08/18/19 08:21 08/18/19 08:21 08/18/19 08:21 General appearance: no acute distress, alert Eyes: non-icteric ENT: oropharynx moist Neck: supple, no JVD Ascultation: Bilateral: diminished breath sounds Cardiovascular: regular rate and rhythm Gastrointestinal: normoactive bowel sounds, soft, non-tender Integumentary: normal Extremities: no cyanosis, no edema Musculoskeletal: no deformities Gait: other (Resting in bed at this time.) normal mental status, non-focal exam, pupils equal and round, CN II-XII normal mood appropriate Results - Laboratory Findings CBC and BMP: 08/18/19 08:43 08/18/19 08:43 PT/INR, D-dimer D-Dimer 710.30 ng/mlDDU (0-234) H 08/18/19 09:09 Abnormal lab findings: Abnormal Labs 08/18/19 08/18/19 08/18/19 08:43 08:43 09:09 WBC 11.3 H RDW 15.4 H Lymph % (Auto) 6.9 L Lymph # 0.8 L Seg Neutrophils % 85.8 H Seg Neutrophils # 9.7 H D-Dimer 710.30 H Sodium 136 L Potassium 3.4 L Carbon Dioxide 17 L BUN 6 L Creatinine 0.6 L Glucose 152 H Hemoglobin A1c 08/19/19 02:30 WBC RDW Lymph % (Auto) Lymph # Seg Neutrophils % Seg Neutrophils # D-Dimer Sodium Potassium Carbon Dioxide BUN Creatinine Glucose Hemoglobin A1c 6.1 H - Diagnostic Findings Chest x-ray: report reviewed, image reviewed (NO ACUTE FINDINGS. MODERATE HIATAL HERNIA) CT scan - chest: report reviewed, image reviewed Additional studies: ANGIO CT of Chest: IMPRESSION: Suboptimal examination for pulmonary embolus. No large central PE is identified. Large hiatal hernia. Clear lungs. Thoracic spondylosis and chronic appearing thoracic compression deformities at T3 and T6. Assessment and Plan 74-year-old female with history of COPD, hyperlipidemia and depression comes in for increasing shortness of breath for 4 weeks but more so for the last 2 days. Severe wheezing present. Cough productive of mucoid sputum. Patient also has retrosternal chest pain and bilateral chest pain secondary to coughing. No diaphoresis. No palpitations. No fever or chills. No exacerbating or relieving factors. No recent travel. Patient has heavy history of smoking 3 packs x 20 years. Still smoking. Counselled to stop smoking. Denies alcohol or drug abuse. No known drug allergies. 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 Children !. Patient presently resting on 2 litres O2. O2 saturation 98%. Chest xray no acute finding. Reported hiatal hernia. Angio CT of chest reported no large central emboli. Lungs clear. Large hiatal hernia. - Patient Problems (1) Acute respiratory failure with hypoxia and hypercapnia Current Visit: No Status: Acute Plan to address problem: O2 2 litres via nasal canula. Albuterol/atrovent aerosol treatments q 6 hours. Continue Solumedrol. Continue levaquin Continue S/C Lovenox. Continue famotidine. (2) COPD with exacerbation Current Visit: No Status: Acute Plan to address problem: O2 2 litres via nasal canula. Albuterol/atrovent aerosol treatments q 6 hours. Continue Solumedrol. Continue levaquin Continue S/C Lovenox. Continue famotidine. ABGs on room air. PFTs as out patient. (3) Chest pain Current Visit: Yes Status: Acute Plan to address problem: Management as per cardiology. (4) Acute bronchitis Current Visit: No Status: Acute Plan to address problem: Continue Levaquin. (5) Nicotine dependence Current Visit: No Status: Chronic Qualifiers: Nicotine product type: cigarettes Plan to address problem: Counselled to stop smoking.
[2019-08-20 06:39] LABS: Alanine Aminotransferase 10 units/L (7-56); Albumin 3.3 g/dL (3.9-5); BUN/Creatinine Ratio 20; Blood Urea Nitrogen 12 mg/dL (7-17); Calcium 8.6 mg/dL (8.4-10.2); Hemolysis Index 10
[2019-08-20] MEDS ORDERED: SOLU-Medrol IV SCH (08:00)
[2019-08-20] MEDS: DUONEB *Not for PRN Use IH SCH ×2 (08:18→13:46)
[2019-08-20] MEDS: PULMICORT IH SCH (08:21)
[2019-08-20] MEDS ORDERED: K-DUR PO NR (08:25)
--- NOTE | 2019-08-20 08:57 | Progress Note ---
Assessment and Plan COPD with exacerbation Chest pain Acute bronchitis Tobacco use/Nicotine dependence Hypokalemia -Continue with bronchodilators -Complete antibiotics for severe AE-COPD -Steroid taper -Wean off supplemental oxygen for O2 sats>90% -VTE prophylaxis -Smoking cessation counselling -Replace potassium -Discharge planning per primary Needs close outpatient follow up with pulmonary on discharge Subjective Date of service: 08/20/19 Interval history: Patient is seen today for: AE-COPD, Dyspnea, Chest pain, on going tobacco use disorder Seen and examined at bedside; 24hour events reviewed; nursing and respiratory care staff consulted; no adverse overnight events reported to me; Vitals, labs, medications, chart reviewed. Feeling better. Objective Vital Signs - 12hr 08/19/19 08/20/19 08/20/19 22:00 00:30 01:45 Temperature 98.8 F Pulse Rate 102 H 115 H Respiratory 18 18 Rate Blood Pressure 109/62 O2 Sat by Pulse 95 94 Oximetry Constitutional: no acute distress, alert Eyes: non-icteric ENT: oropharynx moist Neck: supple, no JVD Effort: mildly labored Ascultation: Bilateral: diminished breath sounds Cardiovascular: regular rate and rhythm, other (S1,S2) Gastrointestinal: normoactive bowel sounds, soft, non-tender Integumentary: normal Extremities: no cyanosis, no edema Neurologic: normal mental status, non-focal exam, pupils equal and round, CN II- XII normal Psychiatric: mood appropriate, affect normal CBC and BMP: 08/18/19 08:43 08/20/19 05:40 ABG, PT/INR, D-dimer: PT/INR, D-dimer D-Dimer 710.30 ng/mlDDU (0-234) H 08/18/19 09:09 Abnormal lab findings: Abnormal Labs 08/18/19 08/18/19 08/18/19 08:43 08:43 09:09 WBC 11.3 H RDW 15.4 H Lymph % (Auto) 6.9 L Lymph # 0.8 L Seg Neutrophils % 85.8 H Seg Neutrophils # 9.7 H D-Dimer 710.30 H Sodium 136 L Potassium 3.4 L Carbon Dioxide 17 L BUN 6 L Creatinine 0.6 L Glucose 152 H Hemoglobin A1c Total Protein Albumin 08/19/19 08/20/19 02:30 05:40 WBC RDW Lymph % (Auto) Lymph # Seg Neutrophils % Seg Neutrophils # D-Dimer Sodium Potassium 3.1 L Carbon Dioxide BUN Creatinine 0.6 L Glucose 163 H Hemoglobin A1c 6.1 H Total Protein 6.1 L Albumin 3.3 L
[2019-08-20 09:04] VITALS: BP 122/71
[2019-08-20] MEDS: PEPCID PO SCH (09:42)
[2019-08-20] MEDS: EFFEXOR PO SCH (09:43)
[2019-08-20] MEDS: HABITROL TD SCH (09:44)
[2019-08-20] MEDS: LEVAQUIN 750MG/150ML 750 MG/150 ML BAG IV SCH (09:45)
[2019-08-20] MEDS: SODIUM CHLORIDE FLUSH SYRINGE 10 ML IV SCH (09:46)
--- NOTE | 2019-08-20 12:26 | Discharge Summary ---
Providers - Providers Date of Admission: 08/18/19 15:53 Date of discharge: 08/20/19 Attending physician: MIRYAM MONTANEZ 08/19/19 00:25 Consult to Physician [CONS] Routine Comment: Consulting Provider: SHELLY FORD Physician Instructions: Reason For Exam: COPD exacerbation Consult to Physician [CONS] Routine Comment: LEONARDO Consulting Provider: OSMAN GARCIA Physician Instructions: WANDA WAS NOTIFIED Reason For Exam: chest pain 08/20/19 08:55 Physical Therapy Evaluation and Treat [CONS] Routine Comment: Reason For Exam: Debility Primary care physician: BRITTANY RODRIGUEZ Hospitalization Condition: Stable Disposition: DC- TO HOME OR SELFCARE Time spent for discharge: 32 min Core Measure Documentation - Palliative Care Palliative Care/ Comfort Measures: Not Applicable - Core Measures Any of the following diagnoses?: none Exam - Constitutional Vitals: Temp Pulse Resp BP Pulse Ox 98.4 F 112 H 18 122/71 92 08/20/19 08:02 08/20/19 08:40 08/20/19 10:00 08/20/19 08:02 08/20/19 10:00 General appearance: Present: no acute distress, well-nourished - EENT Eyes: Present: PERRL, EOM intact - Neck Neck: Present: supple, normal ROM - Respiratory Respiratory effort: normal Respiratory: bilateral: diminished, negative: rales, rhonchi, wheezing - Cardiovascular Rhythm: regular Heart Sounds: Present: S1 & S2 - Extremities Extremities: no ischemia, No edema - Abdominal General gastrointestinal: Present: soft, non-tender, non-distended, normal bowel sounds - Integumentary Integumentary: Present: clear, warm - Musculoskeletal Musculoskeletal: strength equal bilaterally - Psychiatric Psychiatric: appropriate mood/affect, cooperative - Neurologic Neurologic: CNII-XII intact, moves all extremities Plan Activity: advance as tolerated, fall precautions Diet: low salt Additional Instructions: If you have chest pain or shortness of breath contact M.D. or go to emergency room Follow up with: PRIMARY CAREMD [Referring] - 3-5 Days SHELLY FORD MD [Staff Physician] - 7 Days Prescriptions: guaiFENesin DM [Guaifenesin Dm Syrup] 10 ml PO Q4H PRN #14 oral.liqd PRN Reason: Cough Nicotine [Habitrol] 21 mg TD QDAY #30 patch levoFLOXacin [Levaquin TAB] 500 mg PO QDAY #7 tablet Prednisone [predniSONE 10 mg (6-Day Pack, 21 Tabs)] 10 mg PO .TAPER #1 tab.ds.pk
[2019-08-21] MEDS ORDERED: K-DUR PO SCH (10:00)
== END 2019-08-20 14:30 | disposition home health service (06) | DRG 189 ==
LOC: ED 08:18 → 2B-ACE 15:53
PROVIDERS: ADMIT Internal Medicine; ATTEND Internal Medicine
PROC: 4A033R1 Measurement of Arterial Saturation, Peripheral, Percutaneous Approach (ICD-10-PCS; principal; 2019-08-20)
DX: J96.01 Acute respiratory failure with hypoxia (principal); E87.1 Hypo-osmolality and hyponatremia; J44.1 Chronic obstructive pulmonary disease with (acute) exacerbation; J44.0 Chronic obstructive pulmonary disease with (acute) lower respiratory infection; J20.9 Acute bronchitis, unspecified; E87.6 Hypokalemia; F41.1 Generalized anxiety disorder; F32.9 Major depressive disorder, single episode, unspecified; E78.2 Mixed hyperlipidemia; K58.9 Irritable bowel syndrome, unspecified; J96.02 Acute respiratory failure with hypercapnia; F17.210 Nicotine dependence, cigarettes, uncomplicated; I10 Essential (primary) hypertension; Z71.6 Tobacco abuse counseling; Z82.49 Family history of ischemic heart disease and other diseases of the circulatory system; Z79.899 Other long term (current) drug therapy; Z98.51 Tubal ligation status
CPT/HCPCS: 36415; 36600; 71045; 71275; 78452; 80048; 80053; 82803; 83036; 83880; 84484; 85025; 85379; 93005; 93010; 93017; 93306; 93970; 94640; 94644; 94760; 96360; 96372; G0378; A9270-GY; A9502; J1650; J1956; J2785; J2920; J2930; J7030; Q9967